=== PATIENT | female | born 1985 | race Caucasian/White ===

== ENCOUNTER 2016-08-20 10:22 | Emergency (ER) | payer OTHER ==
[2016-08-20] MEDS ORDERED: HYDROcodone/APAP 5-325MG 1 EACH TAB PO STA (10:50)
--- NOTE | 2016-08-20 11:46 | XR ---
EXAMINATION TYPE: XR ankle complete RT DATE OF EXAM: 08/20/2016 11:29 AM COMPARISON: NONE HISTORY: Pain TECHNIQUE: 3 view right ankle FINDINGS: Ankle mortise is intact. Joint spaces preserved. No acute fractures are evident. Soft tissu es are normal. IMPRESSION: 1. Normal three-view right ankle. 2. A follow-up exam can be performed 7-10 days from acute trauma for continued pain.
--- NOTE | 2016-08-20 11:47 | XR ---
EXAMINATION TYPE: XR foot complete RT DATE OF EXAM: 08/20/2016 11:30 AM COMPARISON: NONE HISTORY: Pain TECHNIQUE: 3 view right foot FINDINGS: No acute fractures are evident. Hammertoe of the second digit may be present. Soft tissues appear normal. Joint spaces are preserved for IMPRESSION: 1. No acute abnormality right foot. 2. Follow-up exam can be performed 7-10 days from acute trauma for continued pain.
--- NOTE | 2016-08-20 11:57 | ED ---
General Adult HPI - General Chief complaint: Extremity Injury, Lower Stated complaint: Foot injury Time Seen by Provider: 08/20/16 10:28 Source: patient, RN notes reviewed, old records reviewed Mode of arrival: wheelchair Limitations: physical limitation - History of Present Illness Initial comments: This is a 31-year-old female here for evaluation. Patient is right ankle pain. Patient has ankle pain secondary to slip and fall. Patient states symptoms have been about 2-3 days ago walking to her neighbor's house. She is very paints ever since but getting worse. No pain control currently. Patient is able to bear weight on right ankle - Related Data Home Medications Medication Instructions Recorded Confirmed No Known Home Medications [No 08/20/16 08/20/16 Known Home Medications] Allergies Allergy/AdvReac Type Severity Reaction Status Date / Time amoxicillin Allergy Unknown Verified 08/20/16 11:48 ibuprofen Allergy Anaphylaxis Verified 08/20/16 11:48 Penicillins Allergy Unknown Verified 08/20/16 11:48 Review of Systems ROS Statement: Those systems with pertinent positive or pertinent negative responses have been documented in the HPI. ROS Other: All systems not noted in ROS Statement are negative. Past Medical History Past Medical History: No Reported History Additional Past Medical History / Comment(s): migraines History of Any Multi-Drug Resistant Organisms: None Reported Past Surgical History: Hysterectomy Additional Past Surgical History / Comment(s): EYE SURGERY Past Psychological History: Bipolar Smoking Status: Former smoker Past Alcohol Use History: None Reported Past Drug Use History: None Reported General Exam Limitations: physical limitation General appearance: alert, in no apparent distress Head exam: Present: atraumatic, normocephalic, normal inspection Eye exam: Present: normal appearance, PERRL, EOMI. Absent: scleral icterus, conjunctival injection, periorbital swelling ENT exam: Present: normal exam, mucous membranes moist Neck exam: Present: normal inspection. Absent: tenderness, meningismus, lymphadenopathy Respiratory exam: Present: normal lung sounds bilaterally. Absent: respiratory distress, wheezes, rales, rhonchi, stridor Cardiovascular Exam: Present: regular rate, normal rhythm, normal heart sounds. Absent: systolic murmur, diastolic murmur, rubs, gallop, clicks GI/Abdominal exam: Present: soft, normal bowel sounds. Absent: distended, tenderness, guarding, rebound, rigid Extremities exam: Present: normal inspection, full ROM, normal capillary refill , other (Right ankle tenderness). Absent: tenderness, pedal edema, joint swelling, calf tenderness Back exam: Present: normal inspection Neurological exam: Present: alert, oriented X3, CN II-XII intact Psychiatric exam: Present: normal affect, normal mood Skin exam: Present: warm, dry, intact, normal color. Absent: rash Course Vital Signs 08/20/16 10:24 Temperature 97.8 F Pulse Rate 102 H Respiratory 20 Rate Blood Pressure 130/63 O2 Sat by Pulse 98 Oximetry - Reevaluation(s) Reevaluation #1: 08/20/16 11:56 Patient's pain is improved Medical Decision Making - Medical Decision Making 31 female at ER for evaluation of fall, right ankle sprain. Patient has right ankle contusion, patient given pain control discharged home - Radiology Data Radiology results: report reviewed (X-ray right ankle x-ray right foot is negative for fracture), image reviewed Disposition Clinical Impression: Ankle sprain, Contusion of right ankle, Fall Disposition: HOME SELF-CARE Condition: Good Instructions: Foot Sprain (ED), Ankle Sprain (ED) Referrals: Dieter Engle MD [Primary Care Provider] - 1-2 days
[2016-08-20 12:24] VITALS: BP 112/87; PULSE 87; RESP 18; TEMP 97.9
== END 2016-08-20 12:24 | disposition home or self-care (01) ==
LOC: EC 10:22
DX: S93.401A Sprain of unspecified ligament of right ankle, initial encounter (principal); Z88.6 Allergy status to analgesic agent; Z88.0 Allergy status to penicillin; Z87.891 Personal history of nicotine dependence; W01.0XXA Fall on same level from slipping, tripping and stumbling without subsequent striking against object, initial encounter
CPT/HCPCS: 99284

== ENCOUNTER 2017-10-08 12:26 | Emergency (ER) | payer OTHER ==
[2017-10-08] MEDS ORDERED: IPRATROPIUM-ALBUTEROL 3 ML NEB INHALATION STA (12:46)
[2017-10-08] MEDS ORDERED: ACETAMINOPHEN IV (For NPO) 1,000 MG in EMPTY BAG 1 BAG IVPB STA (12:46)
[2017-10-08] MEDS ORDERED: SODIUM CHLORIDE 0.9% 1,000 ML IV STA ×2 (12:46→14:00)
--- NOTE | 2017-10-08 13:11 | ED ---
General Adult HPI - General Chief complaint: Upper Respiratory Infection Stated complaint: Throat Pain, Congestion Time Seen by Provider: 10/08/17 12:39 Source: patient, RN notes reviewed Mode of arrival: ambulatory Limitations: no limitations - History of Present Illness Initial comments: Patient is a 32-year-old female significant past medical history for asthma, presented to the emergency room today with a chief complaint of increased congestion and difficulty breathing. Patient does admit that she has a sore throat. States it hurts when she swallows. Patient states that she recently moved back to the area. States she's not been using an inhaler or breathing she was at home. Patient does admit to feeling a little dizzy lightheaded today. She does admit that she's not been feeling well the past 2 days has not been eating and drinking much. Since been sleeping most the time. Patient denies any pain. Patient denies any recent fever, chills, chest pain, back pain , abdominal pain, nausea or vomiting, numbness or tingling, dysuria or hematuria , constipation or diarrhea, headaches or visual changes, or any other complaints. - Related Data Previous Rx's Medication Instructions Recorded Albuterol Inhaler [Ventolin Hfa 1 - 2 puff INHALATION Q4-6H PRN #1 10/08/17 Inhaler] inhaler predniSONE 50 mg PO DAILY #5 tab 10/08/17 Allergies Allergy/AdvReac Type Severity Reaction Status Date / Time amoxicillin Allergy Unknown Verified 10/08/17 12:58 ibuprofen Allergy Anaphylaxis Verified 10/08/17 12:58 Penicillins Allergy Unknown Verified 10/08/17 12:58 Review of Systems ROS Statement: Those systems with pertinent positive or pertinent negative responses have been documented in the HPI. ROS Other: All systems not noted in ROS Statement are negative. Past Medical History Past Medical History: No Reported History Additional Past Medical History / Comment(s): migraines History of Any Multi-Drug Resistant Organisms: None Reported Past Surgical History: Hysterectomy Additional Past Surgical History / Comment(s): EYE SURGERY Past Psychological History: Bipolar Smoking Status: Former smoker Past Alcohol Use History: None Reported Past Drug Use History: None Reported General Exam - General Exam Comments Initial Comments: General: The patient is awake and alert, in no distress, and does not appear acutely ill. Eye: Pupils are equal, round and reactive to light, extra-ocular movements are intact. No nystagmus. There is normal conjunctiva bilaterally. No signs of icterus. Ears, nose, mouth and throat: There are moist mucous membranes and no oral lesions. Neck: The neck is supple, there is no tenderness or JVD. Cardiovascular: There is a regular rate and rhythm. No murmur, rub or gallop is appreciated. Respiratory: Decreased lung sounds bilaterally. respirations are non-labored, breath sounds are equal. No wheezes, stridor, rales, or rhonchi. Musculoskeletal: Normal ROM, no tenderness. Strength 5/5. Sensation intact. Pulses equal bilaterally 2+. Neurological: A&O x 3. CN II-XII intact, There are no obvious motor or sensory deficits. Coordination appears grossly intact. Speech is normal. Skin: Skin is warm and dry and no rashes or lesions are noted. Psychiatric: Cooperative, appropriate mood & affect, normal judgment. Limitations: no limitations Course Vital Signs 10/08/17 10/08/17 10/08/17 12:36 12:41 13:06 Temperature 98.4 F Pulse Rate 117 H 103 H 108 H Respiratory 20 Rate Blood Pressure 130/87 O2 Sat by Pulse 92 L 98 Oximetry 10/08/17 13:13 Temperature Pulse Rate 104 H Respiratory Rate Blood Pressure O2 Sat by Pulse Oximetry EKG Findings - EKG Comments: EKG Findings:: EKG performed at 1303. Normal sinus rhythm at 86 bpm. VA interval 164. QRS 74. QT/QTC 358/428. No acute changes. Medical Decision Making - Medical Decision Making Patient reexamined at this time shows no signs of distress. Her initial pulse ox was 92%. It is felt that this is not accurate as also asked when she was back in the room was up to 98%. Patient's vitals at this time are stable. She has been some improvement after breathing treatment. Chest x-rays negative for any sign of pneumonia. Labs been reviewed. Negative d-dimer. Negative cardiac enzymes. Patient's EKG showing no acute abnormality. At this time patient does admit to a sore throat for her strep test was negative. His felt that she has a upper respiratory infection will be treated with steroids and breathing treatment her symptoms. Patient is advised follow-up the family doctor the next 2 days return here to the emergency room if any symptoms increase worsen. Patient states understanding and is in agreement. - Lab Data Result diagrams: 10/08/17 12:55 10/08/17 12:55 Lab Results 10/08/17 10/08/17 10/08/17 Range/Units 12:55 12:55 12:55 WBC 7.9 (3.8-10.6) k/uL RBC 5.17 (3.80-5.40) m/uL Hgb 16.0 (11.4-16.0) gm/dL Hct 49.6 H (34.0-46.0) % MCV 95.8 (80.0-100.0) fL MCH 30.8 (25.0-35.0) pg MCHC 32.2 (31.0-37.0) g/dL RDW 13.7 (11.5-15.5) % Plt Count 309 (150-450) k/uL Neutrophils % 79 % Lymphocytes % 13 % Monocytes % 6 % Eosinophils % 1 % Basophils % 0 % Neutrophils # 6.2 (1.3-7.7) k/uL Lymphocytes # 1.0 (1.0-4.8) k/uL Monocytes # 0.5 (0-1.0) k/uL Eosinophils # 0.1 (0-0.7) k/uL Basophils # 0.0 (0-0.2) k/uL D-Dimer (<0.60) mg/L FEU Sodium 141 (137-145) mmol/L Potassium 4.7 (3.5-5.1) mmol/L Chloride 102 (98-107) mmol/L Carbon Dioxide 27 (22-30) mmol/L Anion Gap 12 mmol/L BUN 16 (7-17) mg/dL Creatinine 0.62 (0.52-1.04) mg/dL Est GFR (CKD-EPI)AfAm >90 (>60 ml/min/1.73 sqM) Est GFR (CKD-EPI)NonAf >90 (>60 ml/min/1.73 sqM) Glucose 88 (74-99) mg/dL Calcium 9.5 (8.4-10.2) mg/dL Total Bilirubin 0.6 (0.2-1.3) mg/dL AST 51 H (14-36) U/L ALT 91 H (9-52) U/L Alkaline Phosphatase 121 (38-126) U/L Troponin I (0.000-0.034) ng/mL Total Protein 7.2 (6.3-8.2) g/dL Albumin 4.4 (3.5-5.0) g/dL Urine Color Urine Appearance (Clear) Urine pH (5.0-8.0) Ur Specific [place] (1.001-1.035) Urine Protein (Negative) Urine Glucose (UA) (Negative) Urine Ketones (Negative) Urine Blood (Negative) Urine Nitrite (Negative) Urine Bilirubin (Negative) Urine Urobilinogen (<2.0) mg/dL Ur Leukocyte Esterase (Negative) Urine WBC (0-5) /hpf Ur Squamous Epith Cells (0-4) /hpf Amorphous Sediment (None) /hpf Urine Bacteria (None) /hpf Urine Mucus (None) /hpf Heterophile Antibody Negative (Negative) Group A Strep Rapid (Negative) 10/08/17 10/08/17 10/08/17 Range/Units 12:55 12:55 12:55 WBC (3.8-10.6) k/uL RBC (3.80-5.40) m/uL Hgb (11.4-16.0) gm/dL Hct (34.0-46.0) % MCV (80.0-100.0) fL MCH (25.0-35.0) pg MCHC (31.0-37.0) g/dL RDW (11.5-15.5) % Plt Count (150-450) k/uL Neutrophils % % Lymphocytes % % Monocytes % % Eosinophils % % Basophils % % Neutrophils # (1.3-7.7) k/uL Lymphocytes # (1.0-4.8) k/uL Monocytes # (0-1.0) k/uL Eosinophils # (0-0.7) k/uL Basophils # (0-0.2) k/uL D-Dimer 0.22 (<0.60) mg/L FEU Sodium (137-145) mmol/L Potassium (3.5-5.1) mmol/L Chloride (98-107) mmol/L Carbon Dioxide (22-30) mmol/L Anion Gap mmol/L BUN (7-17) mg/dL Creatinine (0.52-1.04) mg/dL Est GFR (CKD-EPI)AfAm (>60 ml/min/1.73 sqM) Est GFR (CKD-EPI)NonAf (>60 ml/min/1.73 sqM) Glucose (74-99) mg/dL Calcium (8.4-10.2) mg/dL Total Bilirubin (0.2-1.3) mg/dL AST (14-36) U/L ALT (9-52) U/L Alkaline Phosphatase (38-126) U/L Troponin I <0.012 (0.000-0.034) ng/mL Total Protein (6.3-8.2) g/dL Albumin (3.5-5.0) g/dL Urine Color Urine Appearance (Clear) Urine pH (5.0-8.0) Ur Specific [place] (1.001-1.035) Urine Protein (Negative) Urine Glucose (UA) (Negative) Urine Ketones (Negative) Urine Blood (Negative) Urine Nitrite (Negative) Urine Bilirubin (Negative) Urine Urobilinogen (<2.0) mg/dL Ur Leukocyte Esterase (Negative) Urine WBC (0-5) /hpf Ur Squamous Epith Cells (0-4) /hpf Amorphous Sediment (None) /hpf Urine Bacteria (None) /hpf Urine Mucus (None) /hpf Heterophile Antibody (Negative) Group A Strep Rapid Negative (Negative) 10/08/17 Range/Units 14:16 WBC (3.8-10.6) k/uL RBC (3.80-5.40) m/uL Hgb (11.4-16.0) gm/dL Hct (34.0-46.0) % MCV (80.0-100.0) fL MCH (25.0-35.0) pg MCHC (31.0-37.0) g/dL RDW (11.5-15.5) % Plt Count (150-450) k/uL Neutrophils % % Lymphocytes % % Monocytes % % Eosinophils % % Basophils % % Neutrophils # (1.3-7.7) k/uL Lymphocytes # (1.0-4.8) k/uL Monocytes # (0-1.0) k/uL Eosinophils # (0-0.7) k/uL Basophils # (0-0.2) k/uL D-Dimer (<0.60) mg/L FEU Sodium (137-145) mmol/L Potassium (3.5-5.1) mmol/L Chloride (98-107) mmol/L Carbon Dioxide (22-30) mmol/L Anion Gap mmol/L BUN (7-17) mg/dL Creatinine (0.52-1.04) mg/dL Est GFR (CKD-EPI)AfAm (>60 ml/min/1.73 sqM) Est GFR (CKD-EPI)NonAf (>60 ml/min/1.73 sqM) Glucose (74-99) mg/dL Calcium (8.4-10.2) mg/dL Total Bilirubin (0.2-1.3) mg/dL AST (14-36) U/L ALT (9-52) U/L Alkaline Phosphatase (38-126) U/L Troponin I (0.000-0.034) ng/mL Total Protein (6.3-8.2) g/dL Albumin (3.5-5.0) g/dL Urine Color Light Yellow Urine Appearance Cloudy H (Clear) Urine pH 7.5 (5.0-8.0) Ur Specific [place] 1.007 (1.001-1.035) Urine Protein Negative (Negative) Urine Glucose (UA) Negative (Negative) Urine Ketones 1+ H (Negative) Urine Blood Negative (Negative) Urine Nitrite Negative (Negative) Urine Bilirubin Negative (Negative) Urine Urobilinogen <2.0 (<2.0) mg/dL Ur Leukocyte Esterase Negative (Negative) Urine WBC 1 (0-5) /hpf Ur Squamous Epith Cells 21 H (0-4) /hpf Amorphous Sediment Rare H (None) /hpf Urine Bacteria Occasional H (None) /hpf Urine Mucus Rare H (None) /hpf Heterophile Antibody (Negative) Group A Strep Rapid (Negative) Disposition Clinical Impression: Asthma exacerbation Disposition: HOME SELF-CARE Condition: Good Instructions: Upper Respiratory Infection (ED) Additional Instructions: Please use medication as discussed. Please follow-up with family doctor in the next 2 days of symptoms have not improved. Please return to emergency room if the symptoms increase or worsen or for any other concerns. Prescriptions: Albuterol Inhaler [Ventolin Hfa Inhaler] 1 - 2 puff INHALATION Q4-6H PRN #1 inhaler PRN Reason: Cough predniSONE 50 mg PO DAILY #5 tab Is patient prescribed a controlled substance at d/c from ED?: No Referrals: Dieter Engle MD [Primary Care Provider] - 1-2 days Time of Disposition: 14:54
[2017-10-08 13:19] LABS: Basophils % (A) 0 %; Eosinophils # (A) 0.1 k/uL (0-0.7); Eosinophils % (A) 1 %; HCT 49.6 % (34.0-46.0); Lymphocytes % (A) 13 %; MCH 30.8 pg (25.0-35.0); MCHC 32.2 g/dL (31.0-37.0); MCV 95.8 fL (80.0-100.0); Mean Platelet Volume 6.6; Monocytes # (A) 0.5 k/uL (0-1.0); Monocytes % (A) 6 %; Neutrophils # (A) 6.2 k/uL (1.3-7.7); Neutrophils % (A) 79 %; Platelet Count 309 k/uL (150-450); RBC 5.17 m/uL (3.80-5.40); RDW 13.7 % (11.5-15.5); WBC 7.9 k/uL (3.8-10.6)
[2017-10-08 13:33] LABS: ALT 91 U/L (9-52); AST 51 U/L (14-36); Albumin 4.4 g/dL (3.5-5.0); Alkaline Phosphatase 121 U/L (38-126); Anion Gap 12 mmol/L; Blood Urea Nitrogen 16 mg/dL (7-17); Calcium 9.5 mg/dL (8.4-10.2); Carbon Dioxide 27 mmol/L (22-30); Chloride 102 mmol/L (98-107); Glucose 88 mg/dL (74-99); Potassium 4.7 mmol/L (3.5-5.1); Sodium 141 mmol/L (137-145); Total Bilirubin 0.6 mg/dL (0.2-1.3); Total Protein 7.2 g/dL (6.3-8.2)
--- NOTE | 2017-10-08 13:33 | XR ---
EXAMINATION TYPE: XR chest 2V DATE OF EXAM: 10/08/2017 COMPARISON: NONE INDICATION: Cough short of breath TECHNIQUE: Frontal and lateral views of the chest are obtained. FINDINGS: The heart size is normal. The pulmonary vasculature is normal. The lungs are clear. IMPRESSION: 1. No acute pulmonary process.
[2017-10-08 14:26] LABS: Amorphous Sediment,Urine Rare /hpf; Appearance,Urine Cloudy (Clear); Bacteria,Urine Occasional /hpf; Bilirubin,Urine Negative (Negative); Blood,Urine Negative (Negative); Color,Urine Light Yellow; Glucose,Urine (UA) Negative (Negative); Ketones,Urine 1+ (Negative); Leukocyte Esterase,Urine Negative (Negative); Mucus,Urine Rare /hpf; Nitrite,Urine Negative (Negative); PH, Urine 7.5 (5.0-8.0); Protein,Urine Negative (Negative); Specific Gravity,Urine 1.007 (1.001-1.035); Squamous Epithelial Cell,Urine 21 /hpf (0-4); Urobilinogen,Urine <2.0 mg/dL (<2.0); WBC,Urine 1 /hpf (0-5)
[2017-10-08 14:52] VITALS: BP 114/66; PULSE 71; RESP 15; TEMP 98.2
[2017-10-08] MEDS ORDERED: methylPREDNISolone SOD SUCCI 125 MG/2 ML VIAL IV STA (14:54)
== END 2017-10-08 15:10 | disposition home or self-care (01) ==
LOC: EC 12:26
DX: J45.901 Unspecified asthma with (acute) exacerbation (principal); R07.0 Pain in throat; Z88.0 Allergy status to penicillin; Z88.6 Allergy status to analgesic agent; Z79.52 Long term (current) use of systemic steroids; Z87.891 Personal history of nicotine dependence
CPT/HCPCS: 99284; 96365; 96375; 96361; 36415; 94640; 93005; 85379; 80053; 84484; 85025; 86308; 81001; 87081; 87430; 71046; J2930; J0131

== ENCOUNTER 2017-10-15 12:16 | Emergency (ER) | payer OTHER ==
[2017-10-15 12:39] VITALS: TEMP 98.5
--- NOTE | 2017-10-15 13:48 | XR ---
EXAMINATION TYPE: XR ankle complete 3 views RT, XR foot complete 3 views RT DATE OF EXAM: 10/15/2017 COMPARISON: 08/20/2016 HISTORY: 32-year-old female with pain FINDINGS: Ankle: Ankle mortise is congruent with preservation of the distal tibiofibular overlap. Talar dome is intact . Small delineation to the Achilles tendon. Subtalar joint appears aligned. No acute fracture, sublux ation, or dislocation. Foot: There is focal spur projecting laterally from the proximal cuboid which was present on 08/20/2016. No acute fracture, subluxation, or dislocation seen. IMPRESSION: 1. Ankle: No acute osseous abnormality seen. 2. Foot: Prominent spicule of bone projecting laterally from the proximal cuboid was present on 2016. Sequela of remote trauma or some posttraumatic arthritic change are considered.
--- NOTE | 2017-10-15 13:51 | ED ---
General Adult HPI - General Chief complaint: Extremity Injury, Lower Stated complaint: rt foot/ankle pain Time Seen by Provider: 10/15/17 12:47 Source: patient, RN notes reviewed Mode of arrival: ambulatory Limitations: no limitations - History of Present Illness Initial comments: 32-year-old female presents to the emergency department for a chief complaint of right ankle pain times one day. Patient states she was carrying objects up the stairs when she felt the pain in her right ankle. Patient denies hitting her head or injuring herself in any other way. Patient denies pain in her head. Patient denies pain in her foot or knee. Patient has been taking Motrin or Tylenol. Patient has not tried icing or elevating the right ankle. Patient has no other complaints at this time including shortness of breath, chest pain, abdominal pain, nausea or vomiting, headache, or visual changes. - Related Data Home Medications Medication Instructions Recorded Confirmed No Known Home Medications [No 10/15/17 10/15/17 Known Home Medications] Allergies Allergy/AdvReac Type Severity Reaction Status Date / Time amoxicillin Allergy Unknown Verified 10/15/17 12:53 ibuprofen Allergy Anaphylaxis Verified 10/15/17 12:53 Penicillins Allergy Unknown Verified 10/15/17 12:53 Review of Systems ROS Statement: Those systems with pertinent positive or pertinent negative responses have been documented in the HPI. ROS Other: All systems not noted in ROS Statement are negative. Past Medical History Past Medical History: No Reported History Additional Past Medical History / Comment(s): migraines History of Any Multi-Drug Resistant Organisms: None Reported Past Surgical History: Hysterectomy Additional Past Surgical History / Comment(s): EYE SURGERY Past Psychological History: Bipolar Smoking Status: Former smoker Past Alcohol Use History: None Reported Past Drug Use History: None Reported General Exam Limitations: no limitations General appearance: alert, in no apparent distress Head exam: Present: atraumatic, normocephalic, normal inspection Eye exam: Present: normal appearance ENT exam: Present: normal exam, mucous membranes moist Neck exam: Present: normal inspection, full ROM. Absent: tenderness, meningismus, lymphadenopathy Respiratory exam: Present: normal lung sounds bilaterally. Absent: respiratory distress, wheezes, rales, rhonchi, stridor Cardiovascular Exam: Present: regular rate, normal rhythm, normal heart sounds. Absent: systolic murmur, diastolic murmur, rubs, gallop, clicks Extremities exam: Present: tenderness (Tenderness to the right medial malleolus. Tenderness to the dorsal right foot. No tenderness to the tib-fib or knee.), normal capillary refill (Refill less than 2 seconds and pedal pulse 2 + in the right lower extremity.), other (Patient ambulated to the bed on the right ankle. Sensation intact in the right lower extremity.). Absent: full ROM (Patient is about 10 plantar flexion and dorsiflexion of the right ankle due to pain.), pedal edema, joint swelling (No swelling noted in the medial malleolus or elsewhere in the ankle or foot, right.), calf tenderness (No tenderness in the calf. No redness or warmth noted in the right calf. Negative Homans sign.) Course Vital Signs 10/15/17 12:37 Temperature 98.5 F Pulse Rate 80 Respiratory 20 Rate Blood Pressure 130/73 O2 Sat by Pulse 96 Oximetry Medical Decision Making - Medical Decision Making 32-year-old female presents to the emergency determine for a chief complaint of right ankle injury times one day. Patient was carrying objects up the stairs when she felt the pain in her right ankle. On exam patient has tenderness of the medial malleolus. She also has mild tenderness of the dorsal foot. No tenderness ulcer in the ankle or foot. Neurovascular intact. Patient is able to ambulate on the right ankle. Patient was given ice in the emergency department and foot was elevated. No swelling or ecchymosis noted to the right ankle. XR Of the right ankle shows no acute osseous abnormality. X-ray of the right foot shows a prominent spicule of bone projecting laterally from the proximal cuboid that was present last year. No acute fracture subluxation or dislocation. Patient likely has a sprain or contusion of the right ankle. She will follow up with primary care in 1-2 days. Patient will take Motrin and Tylenol for pain. She was educated on rice method of therapy. She was wrapped with an John wrap on the right ankle. Patient was offered a prescription for crutches which she refused because she states she doesn't need them and can walk on it. She will return to the emergency Department if she has any worsening symptoms. Disposition Clinical Impression: Ankle injury Disposition: HOME SELF-CARE Condition: Good Instructions: Ankle Sprain (ED), RICE Therapy (ED) Additional Instructions: Please take Motrin and Tylenol for pain. Please rest ice and elevate the right upper extremity. Please use John wrap as needed. Follow-up with primary care at your scheduled appointment tomorrow. Is patient prescribed a controlled substance at d/c from ED?: No Referrals: Dieter Engle MD [Primary Care Provider] - 1-2 days Time of Disposition: 14:08
[2017-10-15 14:24] VITALS: BP 114/73; PULSE 71; RESP 18
== END 2017-10-15 14:22 | disposition home or self-care (01) ==
LOC: EC 12:16
DX: S99.911A Unspecified injury of right ankle, initial encounter (principal); M79.671 Pain in right foot; Z88.0 Allergy status to penicillin; Z88.6 Allergy status to analgesic agent; Z87.891 Personal history of nicotine dependence; X50.0XXA Overexertion from strenuous movement or load, initial encounter; Y93.89 Activity, other specified; Y92.008 Other place in unspecified non-institutional (private) residence as the place of occurrence of the external cause
CPT/HCPCS: 99283

== ENCOUNTER 2017-10-26 23:25 | Emergency (ER) | payer OTHER ==
[2017-10-26 23:34] VITALS: TEMP 98.6
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
[2017-10-26 23:51] LABS: Basophils % (A) 0 %; Eosinophils # (A) 0.2 k/uL (0-0.7); Eosinophils % (A) 2 %; HCT 40.3 % (34.0-46.0); HGB 13.4 gm/dL (11.4-16.0); Lymphocytes # (A) 2.4 k/uL (1.0-4.8); Lymphocytes % (A) 26 %; MCH 31.4 pg (25.0-35.0); MCHC 33.2 g/dL (31.0-37.0); MCV 94.6 fL (80.0-100.0); Mean Platelet Volume 6.4; Monocytes # (A) 0.5 k/uL (0-1.0); Monocytes % (A) 6 %; Neutrophils # (A) 5.8 k/uL (1.3-7.7); Neutrophils % (A) 64 %; Platelet Count 367 k/uL (150-450); RBC 4.26 m/uL (3.80-5.40); RDW 13.6 % (11.5-15.5); WBC 9.1 k/uL (3.8-10.6)
[2017-10-26 23:57] LABS: ALT 41 U/L (9-52); AST 24 U/L (14-36); Alcohol 115 mg/dL; Alkaline Phosphatase 100 U/L (38-126); Anion Gap 11 mmol/L; Blood Urea Nitrogen 20 mg/dL (7-17); Calcium 9.1 mg/dL (8.4-10.2); Carbon Dioxide 22 mmol/L (22-30); Chloride 109 mmol/L (98-107); Glucose 98 mg/dL (74-99); Potassium 3.6 mmol/L (3.5-5.1); Sodium 142 mmol/L (137-145); Total Bilirubin 0.3 mg/dL (0.2-1.3); Total Protein 6.4 g/dL (6.3-8.2)
[2017-10-27] MEDS ORDERED: ACETAMINOPHEN TAB 500 MG TAB PO STA (00:23)
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
--- NOTE | 2017-10-27 01:45 | XR ---
EXAMINATION TYPE: XR chest 2V DATE OF EXAM: 10/27/2017 COMPARISON: 10/08/2017 HISTORY: Cough TECHNIQUE: Frontal and lateral views of the chest are obtained. FINDINGS: Heart and mediastinum are normal. Lungs are clear. Diaphragm is normal. Bony thorax appear s normal. IMPRESSION: Normal chest. No change.
[2017-10-27 02:17] LABS: Appearance,Urine Cloudy (Clear); Bacteria,Urine Rare /hpf; Bilirubin,Urine Negative (Negative); Blood,Urine Negative (Negative); Color,Urine Yellow; Glucose,Urine (UA) Negative (Negative); Ketones,Urine Negative (Negative); Leukocyte Esterase,Urine Negative (Negative); Mucus,Urine Many /hpf; Nitrite,Urine Negative (Negative); PH, Urine 6.5 (5.0-8.0); Protein,Urine Trace (Negative); RBC,Urine 1 /hpf (0-5); Specific Gravity,Urine 1.021 (1.001-1.035); Squamous Epithelial Cell,Urine 21 /hpf (0-4); WBC,Urine 4 /hpf (0-5)
[2017-10-27 02:23] LABS: Amphetamine Screen,Urine Not Detected (NotDetected); Barbiturate Screen,Urine Not Detected (NotDetected); Benzodiazepines Screen,Urine Not Detected (NotDetected); Cocaine Screen,Urine Detected (NotDetected); Methadone Screen, Urine Not Detected (NotDetected); Opiate Screen,Urine Not Detected (NotDetected); Oxycodone Screen, Urine Not Detected (NotDetected); Phencyclidine Screen,Urine Not Detected (NotDetected); Tricyclic Antidepressant,Urine Not Detected (NotDetected); Urn Cannabinoid Scrn Detected (NotDetected)
[2017-10-27 03:38] VITALS: BP 102/50; PULSE 90; RESP 16
== END 2017-10-27 03:41 | disposition home or self-care (01) ==
LOC: EC 23:25
DX: F10.129 Alcohol abuse with intoxication, unspecified (principal); M54.5 Low back pain; M54.2 Cervicalgia; R51 Headache; R06.00 Dyspnea, unspecified; R55 Syncope and collapse; Z87.891 Personal history of nicotine dependence; Z88.0 Allergy status to penicillin; Z88.6 Allergy status to analgesic agent; Y04.0XXA Assault by unarmed brawl or fight, initial encounter
CPT/HCPCS: 36415; 70450; 71046; 72100; 72125; 72170; 80053; 80306; 80320; 81001; 85025; 99285

== ENCOUNTER 2017-11-10 00:33 | Emergency (ER) | payer OTHER ==
[2017-11-10] MEDS ORDERED: SODIUM CHLORIDE 0.9% 1,000 ML IV ONE (01:08)
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
[2017-11-10 01:20] LABS: Basophils % (A) 0 %; Eosinophils # (A) 0.1 k/uL (0-0.7); Eosinophils % (A) 1 %; HCT 42.2 % (34.0-46.0); HGB 14.1 gm/dL (11.4-16.0); Lymphocytes # (A) 2.5 k/uL (1.0-4.8); Lymphocytes % (A) 26 %; MCH 31.7 pg (25.0-35.0); MCHC 33.5 g/dL (31.0-37.0); MCV 94.5 fL (80.0-100.0); Mean Platelet Volume 6.5; Monocytes # (A) 0.5 k/uL (0-1.0); Monocytes % (A) 5 %; Neutrophils # (A) 6.5 k/uL (1.3-7.7); Neutrophils % (A) 66 %; Platelet Count 289 k/uL (150-450); RBC 4.46 m/uL (3.80-5.40); RDW 13.3 % (11.5-15.5); WBC 9.9 k/uL (3.8-10.6)
[2017-11-10 01:34] LABS: Alcohol 262 mg/dL; Anion Gap 10 mmol/L; Blood Urea Nitrogen 15 mg/dL (7-17); Calcium 9.4 mg/dL (8.4-10.2); Carbon Dioxide 21 mmol/L (22-30); Chloride 117 mmol/L (98-107); Glucose 97 mg/dL (74-99); Potassium 3.7 mmol/L (3.5-5.1); Sodium 148 mmol/L (137-145)
[2017-11-10 01:37] LABS: Amphetamine Screen,Urine Not Detected (NotDetected); Barbiturate Screen,Urine Not Detected (NotDetected); Benzodiazepines Screen,Urine Not Detected (NotDetected); Cocaine Screen,Urine Detected (NotDetected); Methadone Screen, Urine Not Detected (NotDetected); Opiate Screen,Urine Not Detected (NotDetected); Oxycodone Screen, Urine Not Detected (NotDetected); Phencyclidine Screen,Urine Not Detected (NotDetected); Tricyclic Antidepressant,Urine Not Detected (NotDetected); Urn Cannabinoid Scrn Not Detected (NotDetected)
--- NOTE | 2017-11-10 01:54 | CT ---
EXAMINATION TYPE: CT brain wo con DATE OF EXAM: 11/10/2017 COMPARISON: 10/26/2017 HISTORY: AMS, ETOH CT DLP: 1858.40 mGycm. Automated Exposure Control for Dose Reduction was Utilized. TECHNIQUE: CT scan of the head is performed without contrast. FINDINGS: The ventricles and sulci appear normal. There is no mass effect nor midline shift. There is no sign of intracranial hemorrhage. The calvarium is intact. IMPRESSION: Negative CT scan of the brain. No change.
[2017-11-10 02:51] VITALS: BP 105/62; PULSE 105; RESP 18; TEMP 98.3
== END 2017-11-10 03:03 | disposition home or self-care (01) ==
LOC: EC 00:33
DX: F10.120 Alcohol abuse with intoxication, uncomplicated (principal); F14.10 Cocaine abuse, uncomplicated; R56.9 Unspecified convulsions; Z87.891 Personal history of nicotine dependence; Z88.0 Allergy status to penicillin; Z88.6 Allergy status to analgesic agent; Y90.8 Blood alcohol level of 240 mg/100 ml or more
CPT/HCPCS: 36415; 70450; 80048; 80306; 80320; 85025; 96360; 99284

== ENCOUNTER 2019-08-09 23:11 | Emergency (ER) | payer OTHER ==
[2019-08-09 23:17] VITALS: BP 110/76; PULSE 83; RESP 20; TEMP 98.5
[2019-08-09] MEDS ORDERED: ACET/COD 300 MG/30 MG STARTER PACK 6 TAB BTL PO STA (23:38)
[2019-08-09] MEDS ORDERED: Acetaminophen-Codeine 300-30mg TAB PO STA (23:52)
--- NOTE | 2019-08-10 | ED ---
General Adult HPI - General Chief complaint: Skin/Abscess/Foreign Body Stated complaint: Right breast lump discharge Time Seen by Provider: 08/09/19 23:27 Source: patient, family, RN notes reviewed, old records reviewed Mode of arrival: ambulatory Limitations: no limitations - History of Present Illness Initial comments: 34-year-old male patient with the chief complaint right breast. Patient reports that the last 2 weeks is having pain in her right breast. Patient was seen by her primary care provider who recommended an ultrasound. Patient received 2 days because of pain. States it is uncomfortable to put on a bra and difficult to sleep. She does state that she was having some discharge from her right nipple as well. Denies any other complaints. Systemic: Pt denies fatigue, fever/chills, rash. Pt denies weakness, night sweats, weight loss. Neuro: Pt denies headache, visual disturbances, syncope or pre-syncope. HEENT: Pt denies ocular discharge or irritation, otalgia, rhinorrhea, pharyngitis or notable lymphadenopathy. Cardiopulmonary: Pt denies chest pain, SOB, heart palpitations, dyspnea on exertion. Abdominal/GI: Pt denies abdominal pain, n/v/d. : Pt denies dysuria, burning w/ urination, frequency/urgency. Denies new onset urinary or bowel incontinence. MSK: Pt denies myalgia, loss of strength or function in extremities. Neuro: Pt denies new onset weakness, paresthesias. - Related Data Home Medications Medication Instructions Recorded Confirmed No Known Home Medications 10/15/17 10/15/17 Allergies Allergy/AdvReac Type Severity Reaction Status Date / Time amoxicillin Allergy Unknown Verified 08/09/19 23:17 ibuprofen Allergy Anaphylaxis Verified 08/09/19 23:17 Penicillins Allergy Unknown Verified 08/09/19 23:17 Review of Systems ROS Statement: Those systems with pertinent positive or pertinent negative responses have been documented in the HPI. ROS Other: All systems not noted in ROS Statement are negative. Past Medical History Past Medical History: No Reported History Additional Past Medical History / Comment(s): migraines, asthma, possible breast CA, seizures History of Any Multi-Drug Resistant Organisms: None Reported Past Surgical History: Hysterectomy Additional Past Surgical History / Comment(s): EYE SURGERY Past Psychological History: Bipolar Smoking Status: Former smoker Past Alcohol Use History: Rare Past Drug Use History: Marijuana General Exam - General Exam Comments Initial Comments: Constitutional: NAD, AOX3, Pt has pleasant affect. HEENT: NC/AT, trachea midline, neck supple, no lymphadenopathy. Posterior pharynx non erythematous, without exudates. External ears appear normal, without discharge. Mucous membranes moist. Eyes PERRLA, EOM intact. There is no scleral icterus. No pallor noted. Cardiopulmonary: RRR, no murmurs, rubs or gallops, no JVD noted. Lungs CTAB in anterior and posterior carbajal. No peripheral edema. Abdominal exam: Abdomen soft and non-distended. Abdomen non-tender to palpation in all 4 quadrants. Bowel sounds active in LLQ. No hepatosplenomegaly. No ecchymosis Neuro: CN II-XII grossly intact. No nuchal rigidity. No raccon eyes, no martinez sign, no hemotympanum. No cervical spinal tenderness. MSK: No posterior calf tenderness bilaterally, homans sign negative bilaterally. Posterior tibialis and radial pulse +2 bilaterally. Sensation intact in upper and lower extremities. Full active ROM in upper and lower extremities, 5/5 stregnth. Breast: Clinical breast exam chaperoned by NINA Etienne. Patient did have some mild tenderness to her axillary tail and a possible small mass noted at approximately 12:00 above the nipple. No discharge is noted. No external skin changes are noted. Limitations: no limitations Course Vital Signs 08/09/19 23:13 Temperature 98.5 F Pulse Rate 83 Respiratory 20 Rate Blood Pressure 110/76 O2 Sat by Pulse 97 Oximetry Medical Decision Making - Medical Decision Making 34-year-old male patient with the chief complaint right breast. Patient reports that the last 2 weeks is having pain in her right breast. Patient was seen by her primary care provider who recommended an ultrasound. Patient received 2 days because of pain. States it is uncomfortable to put on a bra and difficult to sleep. She does state that she was having some discharge from her right nipple as well. Denies any other complaints. Patient will signs are stable, afebrile. Physical exam displayed: Clinical breast exam chaperoned by NINA Etienne. Patient did have some mild tenderness to her axillary tail and a possible small mass noted at approximately 12:00 above the nipple. No discharge is noted. No external skin changes are noted. Patient discharged with Tylenol 3 starter pack. Pt will follow-up with primary care provider for outpatient imaging. Will return to ER if condition worsens. Case discussed with Dr. Ragsdale. Disposition Clinical Impression: Breast pain Disposition: HOME SELF-CARE Condition: Stable Instructions (If sedation given, give patient instructions): Nipple Discharge (ED) Additional Instructions: Follow-up with primary care provider. Use pain medication as needed. Return to ED if condition worsens in anyway. Is patient prescribed a controlled substance at d/c from ED?: No Referrals: Dieter Engle MD [Primary Care Provider] - 1-2 days
== END 2019-08-10 00:07 | disposition home or self-care (01) ==
LOC: EC 23:11
DX: N64.4 Mastodynia (principal); N64.52 Nipple discharge; Z87.891 Personal history of nicotine dependence; Z88.0 Allergy status to penicillin; Z88.6 Allergy status to analgesic agent
CPT/HCPCS: 99283

== ENCOUNTER → 2019-08-26 | Outpatient (CLI) | payer OTHER ==
--- NOTE | 2019-08-27 10:47 | USB ---
Reason for exam: clinical finding. Indicated problem(s): lump or thickening in the right breast. Physical Findings: Nurse Summary: Patient complains of right breast lump x 1 month, pain intermittent x 3 months, bloody nipple discharge x 3 weeks, nodular, tender right breast, multicystic, 1cm lumps 11 o'clock at 5 o'clock (nurse mj). US Breast RT Right complete breast ultrasound includes all four quadrants, the retroareolar region and axilla. Finding demonstrates a 2.8 x 1.4 x 2.0cm cystic cluster, avascular, thin septations at 12 o'clock, a 1.3 x 1.2 x 1.9cm cystic cluster at 5 o'clock, precautionary 6 month follow up recommended and a 0.5 x 0.3 x 0.5cm cystic cluster at 9 o'clock, precautionary 6 month follow up recommended. None of the masses are retroareolar. Surgical consultation recommended for patient's bloody nipple discharge. Mammogram deferred until after surgical consultation given ELDER miranda. These results were verbally communicated with the patient and result sheet given to the patient on 08/26/19. ASSESSMENT: Probably benign, BI-RAD 3 (5 o'clock and 9 o'clock) RECOMMENDATION: Surgical consultation of the right breast. Called Dr. Engle's office with mammographic findings and has scheduled an appointment for the patient for 09/11/19 at 8:[address] Hutchison. PRELIMINARY REPORT CALLED AND FAXED TO DR. HUTCHIOSN ON 08/27/19. Ultrasound of the right breast in 6 months.
== END | disposition home or self-care (01) ==
LOC: RADUSWWP 08:18
PROVIDERS: ATTEND Family Medicine
DX: N64.52 Nipple discharge (principal)

== ENCOUNTER → 2019-09-16 | Outpatient (CLI) | payer OTHER ==
--- NOTE | 2019-09-16 09:34 | MM ---
Reason for exam: clinical finding. History: Family history of breast cancer in maternal aunt at age 40 and breast cancer in paternal aunt at age 40. Indicated problem(s): bloody discharge in the right breast. Physical Findings: Nurse Summary: 2 x 2cm nodule in the right breast at 12 o'clock and a 1 x 1.5cm nodule in the right breast at 5 o'clock (nurse ts). [facility] Mammo w CAD B[place] Bilateral CC and MLO view(s) were taken. Finding: There is a 5 x 3 cm circumscribed oval mass in the upper quadrant, middle position of the right breast. Septated large cyst 12 o'clock on ultrasound 08/26/19. Small nodularity in the left breast. Oval lesion middle depth inner breast 1.2cm, likely debris filled cyst on ultrasound. These results were verbally communicated with the patient and result sheet given to the patient on 09/16/19. ASSESSMENT: Incomplete: need additional imaging evaluation, BI-RAD 0 RECOMMENDATION: Ultrasound of the left breast.
--- NOTE | 2019-09-16 09:37 | USB ---
Reason for exam: additional evaluation requested from abnormal screening. History: Family history of breast cancer in maternal aunt at age 40 and breast cancer in paternal aunt at age 40. US Breast LT Technologist: Jaimie Flores Left complete breast ultrasound includes all four quadrants, the retroareolar region and axilla. Finding demonstrates a 1.1 x 1.4 x 0.6cm cystic cluster at 12 o'clock, a 1.1 x 1.0 x 0.7cm cystic lesion with debris at 1 o'clock, a 0.8 x 0.8 x 0.4cm cystic cluster at 1 o'clock and a 1.7 x 1.2 x 0.7cm lesion at 4 o'clock. These results were verbally communicated with the patient and result sheet given to the patient on 09/16/19. ASSESSMENT: Probably benign, BI-RAD 3 RECOMMENDATION: Ultrasound of the left breast in 6 months.
== END | disposition home or self-care (01) ==
LOC: RADMAMWWP 07:32
PROVIDERS: ATTEND Surgery
DX: N64.52 Nipple discharge (principal)
CPT/HCPCS: 77066

== ENCOUNTER → 2019-09-19 | Outpatient (CLI) | payer OTHER ==
--- NOTE | 2019-09-19 09:23 | BMR ---
EXAMINATION TYPE: MR breast BILAT wo/w con DATE OF EXAM: 09/19/2019 COMPARISON: Bilateral diagnostic mammogram dated 09/16/2019 and left breast ultrasound dated 09/16/2019 . Right breast ultrasound dated 08/26/2019. HISTORY: N64.52 bloody nipple discharge on the right, Pain and soreness in Right Breast. Lumps in Bot h Breasts TECHNIQUE: A series of fat and water weighted images in the long and short axis views of both breasts are obtained in conjunction with dynamic contrast MRI with subtraction technique. The patient was i njected with 5 mL intravenous Gadavist gadolinium contrast. Three-dimensional and additional postpr ocessing imaging is created on independent workstation and reviewed during official interpretation of this study. FINDINGS: The breasts are composed of heterogenous fibroglandular tissue with moderate background parenchymal e nhancement, limiting sensitivity of examination. T2 axial fat sat imaging demonstrates numerous bilateral T2 markedly hyperintense cysts, the largest on the right at 12:00 within internal septations corresponding to the sonographic cyst that was palpa ble on the ultrasound of 08/26/2019. This measures up to 2.0 cm and previously measured up to 2.8 cm. Numerous foci of background parenchymal enhancement are seen with a slightly larger more defined well -circumscribed oval mass at anterior depth at approximately the 4:00 position in the right breast mayte suring 6 mm. This demonstrates persistent kinetics and given all findings as of low suspicion. No josafat picious mass or nodule mass enhancement is seen. No abnormal axillary, internal mammary, or intramamm vaishnavi adenopathy bilaterally. IMPRESSION: BI-RADS 2-benign findings. Exam is limited by heterogenous tissue and moderate background parenchymal enhancement with numerous bilateral cysts suggesting fibrocystic change. No suspicious finding on MR I to suggest malignancy. A low suspicion 6 mm oval mass at the 4:00 position in the right breast may represent background enhancement or a small fibroadenoma with persistent kinetics. The patient could undergo six-month follow-up MRI in combination with the suggested bilateral breast ultrasound. Surgic al management of the right breast nipple discharge.
== END | disposition home or self-care (01) ==
LOC: RADMRIMAIN 07:23
PROVIDERS: ATTEND Surgery
DX: N60.02 Solitary cyst of left breast (principal); N60.01 Solitary cyst of right breast; N63.14 Unspecified lump in the right breast, lower inner quadrant; N64.52 Nipple discharge
CPT/HCPCS: C8937; C8908; A9585; 77049

== ENCOUNTER 2019-10-13 05:54 | Day surgery (SDC) | payer OTHER ==
[2019-10-07 14:22] VITALS: BMI 20.5
[~2019-10-13 05:54] MED LIST: ACETAMINOPHEN TAB 500 MG TAB PO ONE; HEPARIN SODIUM,PORCINE 5,000 UNIT/ML 1 ML VIAL SQ ONE
[2019-10-13] MEDS ORDERED: LACTATED RINGERS 1,000 ML IV SCH (05:56)
[2019-10-13] MEDS ORDERED: DEXAMETHASONE SOD PHOSPHATE 10 MG/ML 1 ML VIAL IV ONE (05:56)
[2019-10-13] MEDS ORDERED: LIDOCAINE 1% (10MG/ML) FOR IV START INTRADERMA PRN (05:56)
[2019-10-13] MEDS ORDERED: ONDANSETRON 4 MG/2 ML VIAL IVP ONE ×2 (05:56→08:50)
[2019-10-13 06:13] VITALS: TEMP 98.8
[2019-10-13] MEDS: CLINDAMYCIN 900 MG in DEXTROSE 5% IN WATER 50 ML IVPB ONE ×4 (07:37→08:03)
[2019-10-13] MEDS ORDERED: MIDAZOLAM 2 MG/2 ML VIAL ONE (07:41)
[2019-10-13] MEDS ORDERED: PROPOFOL 10 MG/ML 20 ML VIAL IV ONE (07:41)
[2019-10-13] MEDS ORDERED: fentaNYL (PF) 50 MCG/ML 2 ML AMP ONE (07:41)
[2019-10-13] MEDS ORDERED: LIDOCAINE 1% INJ 10MG/ML (20 ML MDV) ONE (07:41)
[2019-10-13] MEDS ORDERED: BUPIVACAINE (PF) 0.25% 30 ML VIAL SQ ONE ×2 (08:07→08:36)
[2019-10-13] MEDS ORDERED: NALOXONE 0.4 MG/ML 1 ML VIAL IV PRN (08:50)
[2019-10-13] MEDS ORDERED: HYDROcodone/APAP 5-325MG 1 EACH TAB PO PRN (08:50)
[2019-10-13] MEDS: HYDROmorphone 0.5 MG/0.5 ML SYRINGE IVP PRN ×2 (08:55→09:30)
--- NOTE | 2019-10-13 09:02 | P.OP ---
Date of Procedure: 10/13/19 Procedure(s) Performed: PREOPERATIVE DIAGNOSIS: Right breast bloody nipple discharge POSTOPERATIVE DIAGNOSIS: Same PROCEDURE: Subareolar excision, excision breast cyst 11:00 SURGEON: Ernestina EBL: 10 Olga ANESTHESIA: Gen. COMPLICATIONS: None OPERATIVE PROCEDURE: Place never table in the supine position. The patient was placed under general anesthesia. The breast was prepped and draped sterilely. A curvilinear incision was made between 7 and 12:00. Dissection beneath the nipple took place using electrocautery. The subareolar tissue was then excised and sent to pathology for close examination. The patient had a palpable breast cyst at 11:00. I dissected through the breast tissue until the cyst was i dentified and excised. This had normal-appearing [place] colored cyst fluid. No other abnormalities were identified. The subcutaneous tissues were irrigated with saline. No bleeding was seen. The subcutaneous tissues were then closed using 3-0 Vicryl sutures and the skin was closed using interrupted 4-0 Monocryl sutures. Skin glue and sterile dressings were applied. DISPOSITION: Stable to recovery room
[2019-10-13] MEDS ORDERED: diphenhydrAMINE 50 MG/ML 1 ML VIAL IVP ONE (09:20)
[2019-10-13] MEDS ORDERED: ALBUTEROL NEBULIZED 2.5 MG/3 ML INHALATION ONE (09:34)
[2019-10-13] MEDS ORDERED: LACTATED RINGERS 1,000 ML IV ONE (09:47)
[2019-10-13] MEDS ORDERED: oxyCODONE-APAP 5-325MG 1 EACH TAB PO ONE (10:14)
[2019-10-13 10:17] VITALS: BP 124/89; PULSE 99; RESP 18
== END 2019-10-13 10:45 | disposition home or self-care (01) ==
LOC: OR 05:54
PROVIDERS: ATTEND Surgery
DX: N60.11 Diffuse cystic mastopathy of right breast (principal); N62 Hypertrophy of breast; N64.52 Nipple discharge; J45.909 Unspecified asthma, uncomplicated; F31.9 Bipolar disorder, unspecified; G43.909 Migraine, unspecified, not intractable, without status migrainosus; G40.909 Epilepsy, unspecified, not intractable, without status epilepticus; Z90.710 Acquired absence of both cervix and uterus; Z90.722 Acquired absence of ovaries, bilateral; Z90.79 Acquired absence of other genital organ(s); Z88.6 Allergy status to analgesic agent; Z88.0 Allergy status to penicillin; Z79.899 Other long term (current) drug therapy; Z98.890 Other specified postprocedural states; Z87.891 Personal history of nicotine dependence; Z80.3 Family history of malignant neoplasm of breast
CPT/HCPCS: 88304; 88305; 19120; J2250; J1200; J1644; J1100; J2405; J2001; J3010; J2704; J1170; 88307

== ENCOUNTER → 2020-03-18 | Outpatient (CLI) | payer OTHER | END | disposition home or self-care (01) | LOC: LABWHC1 08:49 | PROVIDERS: ATTEND Family Medicine | DX: Z20.828 Contact with and (suspected) exposure to other viral communicable diseases (principal) | CPT/HCPCS: U0003; C9803 ==

== ENCOUNTER 2020-03-21 00:50 | Emergency (ER) | payer OTHER ==
[2020-03-21 00:59] VITALS: BP 110/72; PULSE 87; RESP 20; TEMP 98
[2020-03-21] MEDS ORDERED: SODIUM CHLORIDE 0.9% 500 ML 500 ML IV STA (01:45)
[2020-03-21] MEDS ORDERED: ONDANSETRON 4 MG/2 ML VIAL IVP STA (01:45)
[2020-03-21] MEDS ORDERED: SODIUM CHLORIDE 0.9% 1,000 ML IV STA ×2 (01:45)
--- NOTE | 2020-03-21 01:45 | ED ---
Seizure HPI - General Source: patient, family, RN notes reviewed, old records reviewed Mode of arrival: ambulatory Limitations: no limitations - History of Present Illness MD Complaint: seizure -: unknown -: second(s) Witnessed: yes - by bystander Trauma: No Seizure History: known seizure disorder Place: home Possible Precipitating Event: none Associated Symptoms: denies other symptoms Treatments Prior to Arrival: none <Rj Ragsdale - Last Filed: 03/21/20 02:22> <Curtis Lantigua - Last Filed: 03/21/20 10:16> - General Chief Complaint: Abdominal Pain Stated Complaint: Abd Pain Time Seen by Provider: 03/21/20 01:16 - History of Present Illness Initial Comments: This is a 35-year-old female DF for evaluation patient Dese for evaluation rega rds to multiple complaints. Patient is told some people she suicidal she is telling me here that she may have had 3 seizures tonight. Patient admits to drug use tonight very stressed out at bedside with persistent nausea vomiting (Rj Ragsdale) - Related Data Home Medications Medication Instructions Recorded Confirmed Albuterol Inhaler [Ventolin Hfa 1 puff INHALATION RT-TID PRN 10/07/19 10/13/19 Inhaler] Albuterol Nebulized [Ventolin 1 applic INHALATION Q4H PRN 10/07/19 10/13/19 Nebulized] Beclomethasone Dip 80 Mcg/Puff 1 puff INHALATION BID 10/07/19 10/13/19 [Qvar 80 mcg] Citalopram Hydrobromide 40 mg PO QAM 10/07/19 10/13/19 [Citalopram HBr] busPIRone HCl [Buspar] 10 mg PO QAM 10/07/19 10/13/19 lamoTRIgine 100 mg PO BID 10/07/19 10/13/19 Previous Rx's Medication Instructions Recorded oxyCODONE HCL [OxyIR] 5 mg PO Q6H PRN 3 Days #6 tab 10/13/19 Allergies Allergy/AdvReac Type Severity Reaction Status Date / Time amoxicillin Allergy Unknown Verified 03/21/20 00:59 ibuprofen Allergy Anaphylaxis Verified 03/21/20 00:59 Penicillins Allergy Unknown Verified 03/21/20 00:59 Review of Systems ROS Other: All systems not noted in ROS Statement are negative. <Rj Ragsdale - Last Filed: 03/21/20 02:22> ROS Other: All systems not noted in ROS Statement are negative. <Curtis Lantigua - Last Filed: 03/21/20 10:16> ROS Statement: Those systems with pertinent positive or pertinent negative responses have been documented in the HPI. Past Medical History Past Medical History: Asthma, Seizure Disorder Additional Past Medical History / Comment(s): bloody discharge rt breast, migraines, asthma, last seizure 08/2019 History of Any Multi-Drug Resistant Organisms: None Reported Past Surgical History: Hysterectomy Additional Past Surgical History / Comment(s): EYE SURGERY as child Past Anesthesia/Blood Transfusion Reactions: Postoperative Nausea & Vomiting (PONV) Past Psychological History: Bipolar Smoking Status: Current some day smoker Past Alcohol Use History: Rare Past Drug Use History: Cocaine, Marijuana, Methamphetamine <Rj Ragsdale - Last Filed: 03/21/20 02:22> General Exam Limitations: no limitations General appearance: alert, in no apparent distress, anxious Head exam: Present: atraumatic, normocephalic, normal inspection Eye exam: Present: normal appearance, PERRL, EOMI. Absent: scleral icterus, conjunctival injection, periorbital swelling ENT exam: Present: normal exam, mucous membranes moist Neck exam: Present: normal inspection. Absent: tenderness, meningismus, lymphadenopathy Respiratory exam: Present: normal lung sounds bilaterally. Absent: respiratory distress, wheezes, rales, rhonchi, stridor Cardiovascular Exam: Present: regular rate, normal rhythm, normal heart sounds. Absent: systolic murmur, diastolic murmur, rubs, gallop, clicks GI/Abdominal exam: Present: soft, normal bowel sounds. Absent: distended, tenderness, guarding, rebound, rigid Extremities exam: Present: normal inspection, full ROM, normal capillary refill. Absent: tenderness, pedal edema, joint swelling, calf tenderness Back exam: Present: normal inspection Neurological exam: Present: alert, oriented X3, CN II-XII intact Psychiatric exam: Present: normal affect, normal mood Skin exam: Present: warm, dry, intact, normal color. Absent: rash <Rj Ragsdale - Last Filed: 03/21/20 02:22> Course <Rj Ragsdale - Last Filed: 03/21/20 02:22> Vital Signs 03/21/20 00:54 Temperature 98 F Pulse Rate 87 Respiratory 20 Rate Blood Pressure 110/72 O2 Sat by Pulse 100 Oximetry - Reevaluation(s) Reevaluation #1: 03/21/20 02:22 Medical records reviewed (Rj Ragsdale) Medical Decision Making - Lab Data Result diagrams: 03/21/20 01:51 <Rj Ragsdale - Last Filed: 03/21/20 02:22> - Lab Data Result diagrams: 03/21/20 01:51 03/21/20 01:51 <Curtis Lantigua - Last Filed: 03/21/20 10:16> - Medical Decision Making Patient was seen by mental health services with plan for discharge. Patient reevaluated by myself, Dr. Lantigua. Patient denies suicidal ideation and does contract for safety. Friend is present who is also comfortable with discharge. Patient is comfortable with discharge. (Curtis Lantigua) - Lab Data Lab Results 03/21/20 03/21/20 03/21/20 Range/Units 01:51 01:51 01:51 WBC 7.8 (3.8-10.6) k/uL RBC 5.02 (3.80-5.40) m/uL Hgb 15.8 (11.4-16.0) gm/dL Hct 48.1 H (34.0-46.0) % MCV 95.7 (80.0-100.0) fL MCH 31.4 (25.0-35.0) pg MCHC 32.8 (31.0-37.0) g/dL RDW 12.4 (11.5-15.5) % Plt Count 348 (150-450) k/uL MPV 6.3 Neutrophils % 68 % Lymphocytes % 23 % Monocytes % 4 % Eosinophils % 2 % Basophils % 1 % Neutrophils # 5.3 (1.3-7.7) k/uL Lymphocytes # 1.8 (1.0-4.8) k/uL Monocytes # 0.3 (0-1.0) k/uL Eosinophils # 0.2 (0-0.7) k/uL Basophils # 0.1 (0-0.2) k/uL Sodium (137-145) mmol/L Potassium (3.5-5.1) mmol/L Chloride (98-107) mmol/L Carbon Dioxide (22-30) mmol/L Anion Gap mmol/L BUN (7-17) mg/dL Creatinine (0.52-1.04) mg/dL Est GFR (CKD-EPI)AfAm (>60 ml/min/1.73 sqM) Est GFR (CKD-EPI)NonAf (>60 ml/min/1.73 sqM) Glucose (74-99) mg/dL Calcium (8.4-10.2) mg/dL Phosphorus (2.5-4.5) mg/dL Magnesium (1.6-2.3) mg/dL Total Bilirubin (0.2-1.3) mg/dL AST (14-36) U/L ALT (4-34) U/L Alkaline Phosphatase (38-126) U/L Creatine Kinase (30-135) U/L Total Protein (6.3-8.2) g/dL Albumin (3.5-5.0) g/dL Lipase (23-300) U/L Urine HCG, Qual Not Detected (Not Detectd) Salicylates mg/dL Urine Opiates Screen Not Detected (NotDetected) Ur Oxycodone Screen Not Detected (NotDetected) Urine Methadone Screen Not Detected (NotDetected) Ur Propoxyphene Screen Not Detected (NotDetected) Acetaminophen ug/mL Ur Barbiturates Screen Not Detected (NotDetected) U Tricyclic Antidepress Not Detected (NotDetected) Ur Phencyclidine Scrn Not Detected (NotDetected) Ur Amphetamines Screen Not Detected (NotDetected) U Methamphetamines Scrn Not Detected (NotDetected) U Benzodiazepines Scrn Detected H (NotDetected) Urine Cocaine Screen Detected H (NotDetected) U Marijuana (THC) Screen Not Detected (NotDetected) Serum Alcohol mg/dL 03/21/20 Range/Units 01:51 WBC (3.8-10.6) k/uL RBC (3.80-5.40) m/uL Hgb (11.4-16.0) gm/dL Hct (34.0-46.0) % MCV (80.0-100.0) fL MCH (25.0-35.0) pg MCHC (31.0-37.0) g/dL RDW (11.5-15.5) % Plt Count (150-450) k/uL MPV Neutrophils % % Lymphocytes % % Monocytes % % Eosinophils % % Basophils % % Neutrophils # (1.3-7.7) k/uL Lymphocytes # (1.0-4.8) k/uL Monocytes # (0-1.0) k/uL Eosinophils # (0-0.7) k/uL Basophils # (0-0.2) k/uL Sodium 141 (137-145) mmol/L Potassium 5.1 (3.5-5.1) mmol/L Chloride 108 H (98-107) mmol/L Carbon Dioxide 26 (22-30) mmol/L Anion Gap 7 mmol/L BUN 14 (7-17) mg/dL Creatinine 0.53 (0.52-1.04) mg/dL Est GFR (CKD-EPI)AfAm >90 (>60 ml/min/1.73 sqM) Est GFR (CKD-EPI)NonAf >90 (>60 ml/min/1.73 sqM) Glucose 109 H (74-99) mg/dL Calcium 9.5 (8.4-10.2) mg/dL Phosphorus 3.2 (2.5-4.5) mg/dL Magnesium 2.3 (1.6-2.3) mg/dL Total Bilirubin 0.3 (0.2-1.3) mg/dL AST 35 (14-36) U/L ALT 37 H (4-34) U/L Alkaline Phosphatase 80 (38-126) U/L Creatine Kinase 48 (30-135) U/L Total Protein 7.5 (6.3-8.2) g/dL Albumin 4.6 (3.5-5.0) g/dL Lipase 118 (23-300) U/L Urine HCG, Qual (Not Detectd) Salicylates <1.0 mg/dL Urine Opiates Screen (NotDetected) Ur Oxycodone Screen (NotDetected) Urine Methadone Screen (NotDetected) Ur Propoxyphene Screen (NotDetected) Acetaminophen <10.0 ug/mL Ur Barbiturates Screen (NotDetected) U Tricyclic Antidepress (NotDetected) Ur Phencyclidine Scrn (NotDetected) Ur Amphetamines Screen (NotDetected) U Methamphetamines Scrn (NotDetected) U Benzodiazepines Scrn (NotDetected) Urine Cocaine Screen (NotDetected) U Marijuana (THC) Screen (NotDetected) Serum Alcohol 164 mg/dL Disposition <Rj Ragsdale - Last Filed: 03/21/20 02:22> Is patient prescribed a controlled substance at d/c from ED?: No Time of Disposition: 10:16 <Curtis Lantigua - Last Filed: 03/21/20 10:16> Clinical Impression: Abdominal pain, Depression, Alcohol intoxication Disposition: HOME SELF-CARE Condition: Stable Instructions (If sedation given, give patient instructions): Abdominal Pain (ED), Alcohol Intoxication (ED), Depression (ED), Help Prevent Suicide (ED) Additional Instructions: Please follow-up with primary care physician in the next day or 2 for recheck. Please follow-up with mental health services as directed. Avoid alcohol. Return for thoughts of self-harm, worsening symptoms, abdominal pain, or other concerns Referrals: Dieter Engle MD [Primary Care Provider] - 1-2 days
[2020-03-21] MEDS ORDERED: LORazepam 2 MG/ML INJ IV STA (01:47)
[2020-03-21 02:13] LABS: Basophils # (A) 0.1 k/uL (0-0.2); Basophils % (A) 1 %; Eosinophils # (A) 0.2 k/uL (0-0.7); Eosinophils % (A) 2 %; HCT 48.1 % (34.0-46.0); HGB 15.8 gm/dL (11.4-16.0); Lymphocytes # (A) 1.8 k/uL (1.0-4.8); Lymphocytes % (A) 23 %; MCH 31.4 pg (25.0-35.0); MCHC 32.8 g/dL (31.0-37.0); MCV 95.7 fL (80.0-100.0); Mean Platelet Volume 6.3; Monocytes # (A) 0.3 k/uL (0-1.0); Monocytes % (A) 4 %; Neutrophils # (A) 5.3 k/uL (1.3-7.7); Neutrophils % (A) 68 %; Platelet Count 348 k/uL (150-450); RBC 5.02 m/uL (3.80-5.40); RDW 12.4 % (11.5-15.5); WBC 7.8 k/uL (3.8-10.6)
[2020-03-21 02:25] LABS: ALT 37 U/L (4-34); AST 35 U/L (14-36); Acetaminophen <10.0 ug/mL; African American GFR (CKD) >90 (>60 ml/min/1.73 sqM); Albumin 4.6 g/dL (3.5-5.0); Alcohol 164 mg/dL; Alkaline Phosphatase 80 U/L (38-126); Anion Gap 7 mmol/L; Blood Urea Nitrogen 14 mg/dL (7-17); Calcium 9.5 mg/dL (8.4-10.2); Carbon Dioxide 26 mmol/L (22-30); Chloride 108 mmol/L (98-107); Creatine Kinase 48 U/L (30-135); Glucose 109 mg/dL (74-99); Lipase 118 U/L (23-300); Magnesium 2.3 mg/dL (1.6-2.3); Non-African American GFR(CKD) >90 (>60 ml/min/1.73 sqM); Phosphorus 3.2 mg/dL (2.5-4.5); Potassium 5.1 mmol/L (3.5-5.1); Salicylate <1.0 mg/dL; Sodium 141 mmol/L (137-145); Total Bilirubin 0.3 mg/dL (0.2-1.3); Total Protein 7.5 g/dL (6.3-8.2)
[2020-03-21 04:00] LABS: Amphetamine Screen,Urine Not Detected (NotDetected); Barbiturate Screen,Urine Not Detected (NotDetected); Benzodiazepines Screen,Urine Detected (NotDetected); Cocaine Screen,Urine Detected (NotDetected); Methadone Screen, Urine Not Detected (NotDetected); Opiate Screen,Urine Not Detected (NotDetected); Oxycodone Screen, Urine Not Detected (NotDetected); Phencyclidine Screen,Urine Not Detected (NotDetected); Tricyclic Antidepressant,Urine Not Detected (NotDetected); Urn Cannabinoid Scrn Not Detected (NotDetected)
== END 2020-03-21 10:31 | disposition home or self-care (01) ==
LOC: EC 00:50
DX: F10.129 Alcohol abuse with intoxication, unspecified (principal); F31.9 Bipolar disorder, unspecified; R10.9 Unspecified abdominal pain; J45.909 Unspecified asthma, uncomplicated; G40.909 Epilepsy, unspecified, not intractable, without status epilepticus; F17.200 Nicotine dependence, unspecified, uncomplicated; Z79.51 Long term (current) use of inhaled steroids; Z79.899 Other long term (current) drug therapy; Z88.0 Allergy status to penicillin; Z88.6 Allergy status to analgesic agent
CPT/HCPCS: 82075; 36415; 80053; 82550; 83690; 83735; 84100; 85025; 81025; 80306; 83520; 99284; 96374; 96375; G0480 ×2; J2060; J2405; 80320; 80329

== ENCOUNTER 2020-04-05 10:45 | Emergency (ER) | payer OTHER ==
[2020-04-05 11:11] VITALS: BP 102/71; RESP 18; TEMP 97.9
--- NOTE | 2020-04-05 11:42 | ED ---
Psych HPI - General Chief Complaint: Psychiatric Symptoms Stated Complaint: EPS eval Time Seen by Provider: 04/05/20 11:12 Source: patient, RN notes reviewed Mode of arrival: ambulatory Limitations: no limitations - History of Present Illness Initial Comments: 35-year-old female presented emergency department with chief complaint of psychiatric issues. Patient states she's having increasing depression, having some thoughts that she does not want to live anymore she states that she is not acting upon any thoughts of hurting herself. Patient does admit that she took Xanax that was not hers yesterday in which she states she took partially 5 tablets. Patient states this was to calm herself down. Patient also admits that she relapsed and drug use because she smokes marijuana which was laced with crack. Patient states she does have a history of crack cocaine use. Patient denies any homicidal ideation denies any alcohol abuse. Patient is on multiple medications with no improvement - Related Data Home Medications Medication Instructions Recorded Confirmed Albuterol Nebulized [Ventolin 2.5 mg INHALATION RT-QID PRN 10/07/19 04/05/20 Nebulized] Beclomethasone Dip 80 Mcg/Puff 1 puff INHALATION BID 10/07/19 04/05/20 [Qvar 80 mcg] Citalopram Hydrobromide 40 mg PO QAM 10/07/19 04/05/20 [Citalopram HBr] lamoTRIgine 100 mg PO BID 10/07/19 04/05/20 Albuterol Sulfate [Proair Hfa] 1 - 2 puff INHALATION RT-Q6H PRN 04/05/20 04/05/20 Baclofen [Lioresal] 10 mg PO QID PRN 04/05/20 04/05/20 Budesonide/Formoterol Fumarate 2 puff INHALATION RT-BID PRN 04/05/20 04/05/20 [Symbicort 160-4.5 Mcg Inhaler] Butalb/APAP/Caff 50-325-40Mg 1 tab PO Q6H PRN 04/05/20 04/05/20 [Fioricet 50-325-40] Docusate Sodium [Dok] 100 mg PO BID 04/05/20 04/05/20 Ergocalciferol [Vitamin D2] 50,000 unit PO SA 04/05/20 04/05/20 Fluticasone Propionate 110 Mcg 1 puff INHALATION RT-BID PRN 04/05/20 04/05/20 [Flovent 110 Mcg Inhaler (Mhu)] Meloxicam [Mobic] 7.5 mg PO BID 04/05/20 04/05/20 Na Phos,M-B/Na Phos,Di-Ba [Fleet 133 ml RECTAL DAILY PRN 04/05/20 04/05/20 Adult] Naloxone HCl [Narcan] 4 mg NASAL ONCE PRN 04/05/20 04/05/20 Omeprazole 20 mg PO DAILY 04/05/20 04/05/20 Polyethylene Glycol 3350 [Miralax] 17 gm PO DAILY 04/05/20 04/05/20 busPIRone HCL 15 mg PO TID PRN 04/05/20 04/05/20 Allergies Allergy/AdvReac Type Severity Reaction Status Date / Time amoxicillin Allergy Unknown Verified 04/05/20 11:55 ibuprofen Allergy Anaphylaxis Verified 04/05/20 11:55 Penicillins Allergy Unknown Verified 04/05/20 11:55 Review of Systems ROS Statement: Those systems with pertinent positive or pertinent negative responses have been documented in the HPI. ROS Other: All systems not noted in ROS Statement are negative. Past Medical History Past Medical History: Asthma, Seizure Disorder Additional Past Medical History / Comment(s): migraines, asthma, last seizure 08/2019 History of Any Multi-Drug Resistant Organisms: None Reported Past Surgical History: Hysterectomy Additional Past Surgical History / Comment(s): EYE SURGERY as child Past Anesthesia/Blood Transfusion Reactions: Postoperative Nausea & Vomiting (PONV) Past Psychological History: Bipolar, Depression Smoking Status: Former smoker Past Alcohol Use History: Rare Past Drug Use History: Cocaine, Marijuana, Methamphetamine General Exam Limitations: no limitations General appearance: alert, in no apparent distress Head exam: Present: atraumatic, normocephalic, normal inspection Eye exam: Present: normal appearance, PERRL, EOMI. Absent: scleral icterus, conjunctival injection, periorbital swelling ENT exam: Present: normal exam, mucous membranes moist Neck exam: Present: normal inspection, full ROM. Absent: tenderness, meningismus, lymphadenopathy Respiratory exam: Present: normal lung sounds bilaterally. Absent: respiratory distress, wheezes, rales, rhonchi, stridor Cardiovascular Exam: Present: regular rate, normal rhythm, normal heart sounds. Absent: systolic murmur, diastolic murmur, rubs, gallop, clicks Neurological exam: Present: alert, oriented X3 Psychiatric exam: Present: depressed, flat affect Course Vital Signs 04/05/20 04/05/20 04/05/20 11:05 12:31 12:44 Temperature 97.9 F Pulse Rate 79 66 68 Respiratory 18 Rate Blood Pressure 102/71 O2 Sat by Pulse 100 Oximetry Medical Decision Making - Medical Decision Making Patient evaluated by EPS and CM patient signed safety plan, patient recommend a follow-up outpatient with resources. They did discuss 5 for drug rehab. Return parameters were discussed. Disposition Clinical Impression: Depression Disposition: HOME SELF-CARE Condition: Stable Instructions (If sedation given, give patient instructions): Depression (ED) Additional Instructions: Please return to the Emergency Department if symptoms worsen or any other concerns. Is patient prescribed a controlled substance at d/c from ED?: No Referrals: Dieter Engle MD [Primary Care Provider] - 1-2 days Time of Disposition: 13:09
[2020-04-05] MEDS ORDERED: IPRATROPIUM-ALBUTEROL 3 ML NEB INHALATION STA (11:44)
[2020-04-05 12:44] VITALS: PULSE 68
== END 2020-04-05 13:39 | disposition home or self-care (01) ==
LOC: EC 10:45
DX: F32.9 Major depressive disorder, single episode, unspecified (principal); J45.909 Unspecified asthma, uncomplicated; G40.909 Epilepsy, unspecified, not intractable, without status epilepticus; Z79.899 Other long term (current) drug therapy; Z79.1 Long term (current) use of non-steroidal anti-inflammatories (NSAID); Z79.51 Long term (current) use of inhaled steroids; Z88.6 Allergy status to analgesic agent; Z88.0 Allergy status to penicillin; Z87.891 Personal history of nicotine dependence
CPT/HCPCS: 82075; 94640; 99284

== ENCOUNTER → 2020-10-15 | Outpatient (CLI) | payer OTHER ==
--- NOTE | 2020-10-15 12:32 | USB ---
EXAMINATION TYPE: US breast complete BILAT DATE OF EXAM: 10/15/2020 COMPARISON: Mammogram same date CLINICAL HISTORY: N64.52 nipple drainage. All 4 quadrants in the retroareolar region of both breasts were scanned with ultrasound. Bilateral ax illa scanned with ultrasound. Multiple bilateral simple, complicated and clustered cysts are seen. In the right breast at 5:00, there is a 0.6 x 0.4 x 0.6 cm hypoechoic lesion which most likely repres ents a complicated cyst and is probably benign. Follow-up right breast ultrasound is recommended in 6 months. IMPRESSION: Follow-up right breast ultrasound is recommended in 6 months for the 0.6 cm lesion at 5:00. BI-RADS 3, probably benign.
--- NOTE | 2020-10-15 12:55 | MM ---
Reason for exam: clinical finding. Last mammogram was performed 1 year and 1 month ago. History: Family history of breast cancer in maternal aunt at age 40 and breast cancer in paternal aunt at age 40. Benign excisional biopsy of the right breast, 2019. Indicated problem(s): palpable abnormality and bloody discharge in both breasts. Physical Findings: Nurse Summary: 1cm nodule in the right breast at 4 o'clock, 2cm nodule in the right breast at 11 o'clock and a 1cm nodule in the left breast at 8 o'clock (nurse db). MG Diagnostic Mammo w CAD [place] Bilateral CC, MLO, CC with magnification, and ML with magnification view(s) were taken. Prior study comparison: September 16, 2019, bilateral MG diagnostic mammo w CAD [place]. The breast tissue is heterogeneously dense. This may lower the sensitivity of mammography. No mammogram correlate for bilateral palpable and bloody nipple discharge. Bilateral ultrasound recommended. These results were verbally communicated with the patient and result sheet given to the patient on 10/15/20. ASSESSMENT: Incomplete: need additional imaging evaluation, BI-RAD 0 RECOMMENDATION: Ultrasound of both breasts.
== END | disposition home or self-care (01) ==
LOC: RADMAMWWP 10:46
PROVIDERS: ATTEND Surgery
DX: N64.52 Nipple discharge (principal); Z80.3 Family history of malignant neoplasm of breast
CPT/HCPCS: 77066

== ENCOUNTER → 2021-10-14 | Outpatient (CLI) | payer OTHER ==
[2021-10-14 13:41] VITALS: BP 109/74; PULSE 82; RESP 18; TEMP 98.7
--- NOTE | 2021-10-14 14:06 | P.GSHP ---
History of Present Illness H&P Date: 10/14/21 Chief Complaint: Nipple discharge Lolis is a 36-year-old white female seen in consultation for Dr. Engle regarding nipple discharge. Of importance is the fact that she underwent a right breast duct exploration on . This revealed fibrocystic breast disease as well as intraductal papillomatosis. She had a bilateral mammogram performed on 5321. Persistent asymmetric areas of density in the right breast were stable. There was a new spiculated density along the anterior portion of the left breast 9 mm in diameter and visible on the MLO view. It was recommended that a diagnostic left breast mammogram with spot compression cone- down views in the MLO and lateral projection be done. The right breast was felt to be stable. She has been having left breast nipple discharge for about 4 years. She has not been having any right breast discharge since she had the right nipple duct exploration. The bleeding is intermittent from the left nipple. Approximately a week ago she had a large amount of blood after she woke up. surgery: Right breast duct exploration she has not had bloody nipple discharge in that site since the exploration No other biopsies or surgery on the breast had been done She does not feel any specific masses in her breast at this time. She does complain of pain in her left breast. It has been occurring for 4 years. It is worse with touch. Note from DR. Engle 08-31-21 CAffiene: none nicotine:none chocolate: occasional hormones: patient had a partial hysterectomy, only has one ovary; done for endometriosis Family history: maternal aunt: breast cancer ( genetic test -) paternal aunt: breast cancer paternal grandmother: breast cancer 2 paternal great aunts: breast cancer cousin: colon cancer Hormonal History: menarche: 12 , age at : 19, breast fed: no hysterectomy at 26, left one ovary hormones: none BCP: used at 19 Surgical History: I surgery Partial hysterectomy Medical History: asthma COPD anxiety depression Social History: nicotine: stopped 2 years ago alcohol: stopped 2 years ago (was an alcoholic) cocaine: in the past, marijuana intermittently - Constitutional Constitutional: Reports sweats - EENT Eyes: denies blurred vision, denies pain Ears: deny: decreased hearing, tinnitus Ears, nose, mouth and throat: Reports headache - Breasts Breasts: bilateral: as per HPI - Cardiovascular Cardiovascular: Reports shortness of breath, Denies chest pain - Respiratory Comment: asthma, COPD - Gastrointestinal Gastrointestinal: Reports constipation, Denies abdominal pain, Denies diarrhea, Denies nausea, Denies vomiting - Genitourinary (Female) Genitourinary: Denies dysuria, Denies hematuria - Menstruation Menstruation: Reports post hysterectomy - Musculoskeletal Musculoskeletal: Reports myalgias - Integumentary Integumentary: Denies pruritus, Denies rash - Neurological Neurological: Denies numbness, Denies weakness - Psychiatric Psychiatric: Reports anxiety, Reports depression - Endocrine Endocrine: Reports weight change, Denies fatigue - Hematologic/Lymphatic Comment: none - Allergic/Immunologic Allergic/Immunologic: Reports as per HPI Past Medical History Past Medical History: Asthma, Seizure Disorder Additional Past Medical History / Comment(s): migraines, asthma, last seizure 08/2019 History of Any Multi-Drug Resistant Organisms: None Reported Past Surgical History: Hysterectomy Additional Past Surgical History / Comment(s): EYE SURGERY as child Past Anesthesia/Blood Transfusion Reactions: Postoperative Nausea & Vomiting (PONV) Past Psychological History: Bipolar, Depression Smoking Status: Former smoker Past Alcohol Use History: Rare Past Drug Use History: Cocaine, Marijuana, Methamphetamine Medications and Allergies Home Medications Medication Instructions Recorded Confirmed Type Albuterol Nebulized [Ventolin 2.5 mg INHALATION RT-QID PRN 10/07/19 04/05/20 History Nebulized] Beclomethasone Dip 80 Mcg/Puff 1 puff INHALATION BID 10/07/19 04/05/20 History [Qvar 80 mcg] Citalopram Hydrobromide 40 mg PO QAM 10/07/19 04/05/20 History [Citalopram HBr] lamoTRIgine 100 mg PO BID 10/07/19 04/05/20 History Albuterol Sulfate [Proair Hfa] 1 - 2 puff INHALATION RT-Q6H PRN 04/05/20 04/05/20 History Baclofen [Lioresal] 10 mg PO QID PRN 04/05/20 04/05/20 History Budesonide/Formoterol Fumarate 2 puff INHALATION RT-BID PRN 04/05/20 04/05/20 History [Symbicort 160-4.5 Mcg Inhaler] Butalb/APAP/Caff 50-325-40Mg 1 tab PO Q6H PRN 04/05/20 04/05/20 History [Fioricet 50-325-40] Docusate Sodium [Dok] 100 mg PO BID 04/05/20 04/05/20 History Ergocalciferol [Vitamin D2] 50,000 unit PO SA 04/05/20 04/05/20 History Fluticasone Propionate 110 Mcg 1 puff INHALATION RT-BID PRN 04/05/20 04/05/20 History [Flovent 110 Mcg Inhaler (Mhu)] Meloxicam [Mobic] 7.5 mg PO BID 04/05/20 04/05/20 History Na Phos,M-B/Na Phos,Di-Ba [Fleet 133 ml RECTAL DAILY PRN 04/05/20 04/05/20 History Adult] Naloxone HCl [Narcan] 4 mg NASAL ONCE PRN 04/05/20 04/05/20 History Omeprazole 20 mg PO DAILY 04/05/20 04/05/20 History busPIRone HCL 15 mg PO TID PRN 04/05/20 04/05/20 History polyethylene glycoL 3350 [Miralax] 17 gm PO DAILY 04/05/20 04/05/20 History Allergies Allergy/AdvReac Type Severity Reaction Status Date / Time amoxicillin Allergy Unknown Verified 10/14/21 13:28 ibuprofen Allergy Anaphylaxis Verified 10/14/21 13:28 Penicillins Allergy Unknown Verified 10/14/21 13:28 Surgical - Exam BMI: 24.6 - General no distress - Eyes normal ocular movement - Neck trachea midline - Respiratory normal expansion, normal respiratory effort - Cardiovascular Heart Sounds: normal: S1, S2 - Integumentary normal turgor - Neurologic no disoriented, no combative - Musculoskeletal normal gait, normal posture - Psychiatric oriented to time, oriented to person, oriented to place, speech is normal, memory intact Breast Exam: BRA: medium sports bra inspection: Well-healed scar left breast from prior surgery, bilateral grade 3 ptosis Palpation: Right breast: Multi-positional exam fibrocystic changes no dominant masses or nodules of concern Right axilla: No adenopathy of concern Left breast: Multi-positional exam fibrocystic changes, no dominant masses or nodules of concern, green discharge 9:00 nipple position with palpation Left axilla: No adenopathy of concern Left nipple discharge guaiac study done which is negative Assessment and Plan Assessment: Impression: asthma COPD anxiety depression abnormal left breast mammogram Plan: As per radiology requested is recommended the patient have additional views mammographically of the left breast: They should be spot compression cone-down views in the MLO and lateral projection as well as the cc view Left breast ultrasound At this time the discharge from the left nipple was noted to be guaiac negative and appears to be consistent with fibrocystic fluid consider genetic testing; time the patient wishes to wait CC: DR. Engle
== END ==
LOC: WWCWWP 13:18
PROVIDERS: ATTEND Surgery
DX: R92.8 Other abnormal and inconclusive findings on diagnostic imaging of breast (principal); F41.9 Anxiety disorder, unspecified; J44.9 Chronic obstructive pulmonary disease, unspecified; G40.909 Epilepsy, unspecified, not intractable, without status epilepticus; Z87.891 Personal history of nicotine dependence; G43.909 Migraine, unspecified, not intractable, without status migrainosus; F31.9 Bipolar disorder, unspecified; Z88.0 Allergy status to penicillin; Z88.1 Allergy status to other antibiotic agents; Z88.6 Allergy status to analgesic agent

== ENCOUNTER → 2022-10-23 | Outpatient (CLI) | payer OTHER ==
--- NOTE | 2022-10-23 15:06 | USB ---
Reason for Exam: Clinical finding. Patient History: Menarche at age 11. First Full-Term at age 19. Left ovary removed at age 26. Hysterectomy at age 26. Postmenopausal. 2019, Benign Excisional Biopsy on the right side. Paternal aunt had breast cancer, age 40. Maternal aunt had breast cancer, age 40. Risk Values: Brittny 5 year model risk: 0.4%. NCI Lifetime model risk: 10.1%. Technique: Method: Whole Breast Handheld. Prior Study Comparison: 09/16/2019 Bilateral Diagnostic Mammogram, [facility]. 10/15/2020 Bilateral Diagnostic Mammogram, [facility]. Findings: The whole breast of both breasts, the axilla of both breasts and the retroareolar of both breasts were scanned. A complete US of all four quadrants of the breast and retro-areolar region were reviewed. Additional evaluation of both axilla. Slightly increased size of the cystic lesion with heterogenous component in the right breast at 1:00 7 cm from the nipple measuring 0.9 x 0.3 x 0.7 cm. No internal color flow. Previously measured up to 0.6 cm. This could represent a cyst with debris. Redemonstration of a complex suspected cluster of cysts within the right breast at 6:00 3 sagittal nipple measuring 1.3 x 0.9 x 1.1 cm. Previously measured up to 1.5 cm. There is increased internal echogenicity possibly representing debris. No internal color flow identified. Additional simple appearing cysts demonstrated within the right breast with largest at 10:00 8 cm in the nipple. Redemonstration of a suspected complex cluster of cysts within the left breast at 4:00 8 cm the nipple measuring 1.7 x 0.6 x 1.7 cm. There is subtly increased internal echogenicity likely representing debris. No internal color flow identified. Previously measured up to 1.8 cm. Overall Assessment: Probably benign, BI-RAD 3 Management: Diagnostic Breast Ultrasound of both breasts in 6 months. A clinical breast exam by your physician is recommended on an annual basis and results should be correlated with mammographic findings. This exam should not preclude additional follow-up of suspicious palpable abnormalities. Results were given to the patient verbally at the time of exam. Electronically signed and approved by: Rian Segal D.O.
== END | disposition home or self-care (01) ==
LOC: RADMAMWWP 13:55
PROVIDERS: ATTEND Surgery
DX: N64.52 Nipple discharge (principal); N64.4 Mastodynia; Z80.3 Family history of malignant neoplasm of breast; Z78.0 Asymptomatic menopausal state
CPT/HCPCS: 77066; 76641; G0279; 77062

== ENCOUNTER 2023-01-07 14:09 | Emergency (ER) | payer OTHER ==
[2023-01-07 14:22] VITALS: BP 133/75; PULSE 104; RESP 18; TEMP 98.8
--- NOTE | 2023-01-07 14:49 | ED ---
General Adult HPI - General Source: patient, RN notes reviewed Mode of arrival: ambulatory Limitations: no limitations <Shanice Alfredo - Last Filed: 01/07/23 14:50> <Wilder Mcdaniel - Last Filed: 01/07/23 19:09> - General Chief complaint: Recheck/Abnormal Lab/Rx Stated complaint: Vaginal bleeding - History of Present Illness Initial comments: 37 year old female presents to the emergency department for chief complaint of rectal pain. She states that she has a history of hemorrhoids. She states today she noticed increase pain and some blood. (Shanice Alfredo) 37-year-old female sitting ED with a chief complaint of hemorrhoids. Patient states that she has had a hemorrhoid for the past 5 years. States recently it has increased in pain and this morning it started bleeding on the shower. States that she felt lightheaded during this. States that she is ALLERGIC to ibuprofen and has not been taking anything for the pain. States that it occasionally pops out and comes back in on its own. Denies urinary symptoms. Denies abdominal pain. Denies chest pain shortness of breath. No complaints. (Wilder Mcdaniel) - Related Data Home Medications Medication Instructions Recorded Confirmed Albuterol Nebulized [Ventolin 2.5 mg INHALATION RT-QID PRN 10/07/19 04/05/20 Nebulized] Beclomethasone Dip 80 Mcg/Puff 1 puff INHALATION BID 10/07/19 04/05/20 [Qvar 80 mcg] Citalopram Hydrobromide 40 mg PO QAM 10/07/19 04/05/20 [Citalopram HBr] lamoTRIgine 100 mg PO BID 10/07/19 04/05/20 Albuterol Sulfate [Proair Hfa] 1 - 2 puff INHALATION RT-Q6H PRN 04/05/20 04/05/20 Baclofen [Lioresal] 10 mg PO QID PRN 04/05/20 04/05/20 Budesonide/Formoterol Fumarate 2 puff INHALATION RT-BID PRN 04/05/20 04/05/20 [Symbicort 160-4.5 Mcg Inhaler] Butalb/APAP/Caff 50-325-40Mg 1 tab PO Q6H PRN 04/05/20 04/05/20 [Fioricet 50-325-40] Docusate Sodium [Dok] 100 mg PO BID 04/05/20 04/05/20 Ergocalciferol [Vitamin D2] 50,000 unit PO SA 04/05/20 04/05/20 Fluticasone Propionate 110 Mcg 1 puff INHALATION RT-BID PRN 04/05/20 04/05/20 [Flovent 110 Mcg Inhaler (Mhu)] Meloxicam [Mobic] 7.5 mg PO BID 04/05/20 04/05/20 Na Phos,M-B/Na Phos,Di-Ba [Fleet 133 ml RECTAL DAILY PRN 04/05/20 04/05/20 Adult] Naloxone HCl [Narcan] 4 mg NASAL ONCE PRN 04/05/20 04/05/20 Omeprazole 20 mg PO DAILY 04/05/20 04/05/20 busPIRone HCL 15 mg PO TID PRN 04/05/20 04/05/20 polyethylene glycoL 3350 [Miralax] 17 gm PO DAILY 04/05/20 04/05/20 Allergies Allergy/AdvReac Type Severity Reaction Status Date / Time amoxicillin Allergy Unknown Verified 01/07/23 14:22 ibuprofen Allergy Anaphylaxis Verified 01/07/23 14:22 Penicillins Allergy Unknown Verified 01/07/23 14:22 Review of Systems ROS Other: All systems not noted in ROS Statement are negative. <Shanice Alfredo - Last Filed: 01/07/23 14:50> ROS Other: All systems not noted in ROS Statement are negative. <Wilder Mcdaniel - Last Filed: 01/07/23 19:09> ROS Statement: Those systems with pertinent positive or pertinent negative responses have been documented in the HPI. Past Medical History Past Medical History: Asthma, Seizure Disorder Additional Past Medical History / Comment(s): migraines, asthma, last seizure 08/2019 History of Any Multi-Drug Resistant Organisms: None Reported Past Surgical History: Hysterectomy Additional Past Surgical History / Comment(s): EYE SURGERY as child Past Anesthesia/Blood Transfusion Reactions: Postoperative Nausea & Vomiting (PONV) Past Psychological History: Bipolar, Depression Smoking Status: Former smoker Past Alcohol Use History: Rare Past Drug Use History: Cocaine, Marijuana, Methamphetamine <Shanice Alfredo - Last Filed: 01/07/23 14:50> General Exam Limitations: no limitations <Shanice Alfredo - Last Filed: 01/07/23 14:50> Limitations: no limitations General appearance: alert, in no apparent distress Eye exam: Present: normal appearance Neck exam: Present: normal inspection Respiratory exam: Present: normal lung sounds bilaterally Cardiovascular Exam: Present: regular rate, normal rhythm GI/Abdominal exam: Present: soft (No tenderness palpation. No rebound guarding or rigidity.) Rectal exam: Present: other (Left lateral internal hemorrhoid palpated. No active bleeding.) Neurological exam: Present: alert, oriented X3 Skin exam: Present: warm, dry <Wilder Mcdaniel - Last Filed: 01/07/23 19:09> - General Exam Comments Initial Comments: Visual Physical Exam Vital signs reviewed General: Well-appearing, nontoxic, no acute distress. Head: Normocephalic, atraumatic Eyes: PERRLA, EOMI ENT: Airway patent Chest: Nonlabored breathing Skin: No visual rash, normal skin tone Neuro: Alert and oriented 3 Musculoskeletal: No gross abnormalities (Shanice Alfredo) Course Vital Signs 01/07/23 14:18 Temperature 98.8 F Pulse Rate 104 H Respiratory 18 Rate Blood Pressure 133/75 O2 Sat by Pulse 100 Oximetry Medical Decision Making <Shanice Alfredo - Last Filed: 01/07/23 14:50> <Wilder Mcdaniel - Last Filed: 01/07/23 19:09> - Medical Decision Making I preformed the quick note portion of this chart. Electronically signed by Shanice Alfredo PA-C (Shanice Alfredo) Was pt. sent in by a medical professional or institution (RADHA Almonte, MARKETING SYSTEMS ANALYST, urgent care, hospital, or fci...) When possible be specific @ -No Did you speak to anyone other than the patient for history (EMS, parent, family, police, friend...)? What history was obtained from this source @ -No Did you review nursing and triage notes (agree or disagree)? Why? @ -I reviewed and agree with nursing and triage notes Were old charts reviewed (outside hosp., previous admission, EMS record, old EKG, old radiological studies, urgent care reports/EKG's, fci records)? Report findings @ -No old charts were reviewed Differential Diagnosis (chest pain, altered mental status, abdominal pain women, abdominal pain men, vaginal bleeding, weakness, fever, dyspnea, syncope, headache, dizziness, GI bleed, back pain, seizure, CVA, palpatations, mental health, musculoskeletal)? @ -Differential Abdominal Pain Women: Appendicitis, Cholecystitis, diverticulosis, ischemic bowel, pancreatitis, hepatitis, UTI, gastroenteritis, AAA, incarcerated hernia, bowel obstruction, constipation, inflammatory bowel, hepatitis, peptic ulcer disease, splenic infarction, perforated viscus, vulvitis, ovarian torsion, PID, kidney stone, placenta abruption, this is not meant to be an all-inclusive list EKG interpreted by me (3pts min.). @ -None X-rays interpreted by me (1pt min.). @ -None done CT interpreted by me (1pt min.). @ -None done U/S interpreted by me (1pt. min.). @ -None done What testing was considered but not performed or refused? (CT, X-rays, U/S, labs)? Why? @ -CBC was considered to rule out anemia due to patient's episode of bleeding and her feeling lightheaded however at this time patient reports that her ride is here and she would not like to have any blood work performed. What meds were considered but not given or refused? Why? @ -None Did you discuss the management of the patient with other professionals (professionals i.e. , PA, MARKETING SYSTEMS ANALYST, lab, RT, psych nurse, social work specialist, crop grain or livestock farmer, teacher, benefits officer, child support case officer)? Give summary @ -No Was smoking cessation discussed for >3mins.? @ -No Was critical care preformed (if so, how long)? @ -No Were there social determinants of health that impacted care today? How? (Homelessness, low income, unemployed, alcoholism, drug addiction, transportation, low edu. Level, literacy, decrease access to med. care, halfway, rehab)? @ -No Was there de-escalation of care discussed even if they declined (Discuss DNR or withdrawal of care, Hospice)? DNR status @ -No What co-morbidities impacted this encounter? (DM, HTN, Smoking, COPD, CAD, Cancer, CVA, ARF, Chemo, Hep., AIDS, mental health diagnosis, sleep apnea, morbid obesity)? @ -None Was patient admitted / discharged? Hospital course, mention meds given and route, prescriptions, significant lab abnormalities, going to OR and other pertinent info. @ -Discharge A 37-year-old female to the ED with chief complaint of hemorrhoids. States ongoing for the last 5 years however today increasing pain and episode of bleeding over the last few days worse today. Noted she felt lightheaded as well as bleeding however now reports that she is asymptomatic other than rectal pain due to hemorrhoid. Patient declined blood work to rule out anemia. Advises continuing are the prescribed medications. Patient has follow-up with Dr. lerma at the end of next month. Advised following up as scheduled. Discharged home in stable condition. Undiagnosed new problem with uncertain prognosis? @ -No Drug Therapy requiring intensive monitoring for toxicity (Heparin, Nitro, Insulin, Cardizem)? @ -No Were any procedures done? @ -No Diagnosis/symptom? @ -Internal hemorrhoid Acute, or Chronic, or Acute on Chronic? @ -Acute On chronic Uncomplicated (without systemic symptoms) or Complicated (systemic symptoms)? @ -Uncomplicated Side effects of treatment? @ -No Exacerbation, Progression, or Severe Exacerbation? @ -No Poses a threat to life or bodily function? How? (Chest pain, USA, CA, pneumonia, PE, COPD, DKA, ARF, appy, cholecystitis, CVA, Diverticulitis, Homicidal, Suicidal, threat to staff... and all critical care pts) @ -No (Wilder Mcdaniel) Disposition <Shanice Alfredo - Last Filed: 01/07/23 14:50> Is patient prescribed a controlled substance at d/c from ED?: No Time of Disposition: 19:09 <Wilder Mcdaniel - Last Filed: 01/07/23 19:09> Clinical Impression: Internal hemorrhoid Disposition: HOME SELF-CARE Condition: Good Instructions (If sedation given, give patient instructions): Hemorrhoids (ED), Hemorrhoidectomy (DC), Sitz Bath (DC), High Fiber Diet (ED) Additional Instructions: Please return to the Emergency Department if symptoms worsen or any other concerns. Referrals: Dieter Engle MD [Primary Care Provider] - 1-2 days
[2023-01-07] MEDS ORDERED: ACETAMINOPHEN TAB 500 MG TAB PO STA (18:53)
== END 2023-01-07 19:24 | disposition home or self-care (01) ==
LOC: EC 14:09
DX: K64.8 Other hemorrhoids (principal); J45.909 Unspecified asthma, uncomplicated; F31.9 Bipolar disorder, unspecified; F12.90 Cannabis use, unspecified, uncomplicated; F15.90 Other stimulant use, unspecified, uncomplicated; F14.90 Cocaine use, unspecified, uncomplicated; Z87.891 Personal history of nicotine dependence; Z79.899 Other long term (current) drug therapy; Z79.51 Long term (current) use of inhaled steroids; Z88.0 Allergy status to penicillin; Z88.6 Allergy status to analgesic agent
CPT/HCPCS: 99283

== ENCOUNTER 2023-05-15 08:42 | Day surgery (SDC) | payer OTHER ==
[2023-05-07 15:36] VITALS: BMI 26.4
[~2023-05-15 08:42] MED LIST changes: -ACETAMINOPHEN TAB 500 MG TAB PO ONE; -HEPARIN SODIUM,PORCINE 5,000 UNIT/ML 1 ML VIAL SQ ONE; +LACTATED RINGERS 1,000 ML IV SCH
[2023-05-15 09:30] VITALS: RESP 16; TEMP 98.4
[2023-05-15] MEDS ORDERED: LIDOCAINE 1% INJ 10MG/ML (20 ML MDV) ONE (09:37)
[2023-05-15] MEDS ORDERED: PROPOFOL 10 MG/ML 20 ML VIAL IV ONE (09:37)
--- NOTE | 2023-05-15 09:48 | P.GSHP ---
History of Present Illness H&P Date: 05/15/23 Chief Complaint: Rectal bleeding 38 row female here for colonoscopy. She has had rectal pain and bleeding. She says she feels something after bowel movements externally. Past Medical History Past Medical History: Asthma, GERD/Reflux, Seizure Disorder Additional Past Medical History / Comment(s): migraines, asthma, last seizure 08/2019. BLEEDING HEMORRHOIDS History of Any Multi-Drug Resistant Organisms: None Reported Past Surgical History: Hysterectomy Additional Past Surgical History / Comment(s): EYE SURGERY as child Past Anesthesia/Blood Transfusion Reactions: Postoperative Nausea & Vomiting (PONV) Additional Past Anesthesia/Blood Transfusion Reaction / Comment(s): no blood transfusion Smoking Status: Former smoker Medications and Allergies Home Medications Medication Instructions Recorded Confirmed Type Albuterol Nebulized [Ventolin 2.5 mg INHALATION RT-QID PRN 10/07/19 05/07/23 History Nebulized] Beclomethasone Dip 80 Mcg/Puff 1 puff INHALATION BID 10/07/19 05/07/23 History [Qvar 80 mcg] Citalopram Hydrobromide 40 mg PO QAM 10/07/19 05/07/23 History [Citalopram HBr] lamoTRIgine 100 mg PO BID 10/07/19 05/07/23 History Albuterol Sulfate [Proair Hfa] 1 - 2 puff INHALATION RT-Q6H PRN 04/05/20 05/07/23 History Baclofen [Lioresal] 10 mg PO QID PRN 04/05/20 05/07/23 History Budesonide/Formoterol Fumarate 2 puff INHALATION RT-BID PRN 04/05/20 05/07/23 History [Symbicort 160-4.5 Mcg Inhaler] Butalb/APAP/Caff 50-325-40Mg 1 tab PO Q6H PRN 04/05/20 05/07/23 History [Fioricet 50-325-40] Docusate Sodium [Dok] 100 mg PO BID 04/05/20 05/07/23 History Ergocalciferol [Vitamin D2] 50,000 unit PO SA 04/05/20 05/07/23 History Fluticasone Propionate 110 Mcg 1 puff INHALATION RT-BID PRN 04/05/20 05/07/23 History [Flovent 110 Mcg Inhaler (Mhu)] Meloxicam [Mobic] 7.5 mg PO BID 04/05/20 05/07/23 History Na Phos,M-B/Na Phos,Di-Ba [Fleet 133 ml RECTAL DAILY PRN 04/05/20 05/07/23 History Adult] Naloxone HCl [Narcan] 4 mg NASAL ONCE PRN 04/05/20 05/07/23 History Omeprazole 20 mg PO DAILY 04/05/20 05/07/23 History busPIRone HCL 7.5 mg PO TID PRN 04/05/20 05/07/23 History polyethylene glycoL 3350 [Miralax] 17 gm PO DAILY 04/05/20 05/07/23 History Allergies Allergy/AdvReac Type Severity Reaction Status Date / Time amoxicillin Allergy Anaphylaxis Verified 05/15/23 09:15 ibuprofen Allergy Anaphylaxis Verified 05/15/23 09:15 Penicillins Allergy Unknown Verified 05/15/23 09:15 Childhood Surgical - Exam Vital Signs Temp Pulse Resp BP Pulse Ox 98.4 F 101 H 16 120/74 98 05/15/23 09:23 05/15/23 09:23 05/15/23 09:23 05/15/23 09:23 05/15/23 09:23 Physical exam: General: Well-developed, well-nourished HEENT: Normocephalic, sclerae nonicteric Abdomen: Nontender, nondistended Extremities: No edema Neuro: Alert and oriented Assessment and Plan (1) Rectal bleeding Narrative/Plan: Will proceed with colonoscopy at this time Current Visit: Yes Status: Acute Code(s): K62.5 - HEMORRHAGE OF ANUS AND RECTUM SNOMED Code(s): 24775620
--- NOTE | 2023-05-15 09:55 | P.PCN ---
Date of Procedure: 05/15/23 Procedure(s) Performed: PREOPERATIVE DIAGNOSIS: Rectal bleeding POSTOPERATIVE DIAGNOSIS: Solid stool unable to proceed PROCEDURE: Attempted colonoscopy ANESTHESIA: MAC SURGEON: Geoff Do M.D. SPECIMENS: None ENDOSCOPIC PROCEDURE: The patient was placed on the endoscopy table in the left decubitus position. The Olympus colonoscope was inserted into the anus and passed under direct visualization to the mid rectum. There was solid stool throughout. I question whether the patient took any prep at all. Some of the stool was disimpacted manually. The anus was somewhat patulous but there was no obvious abnormalities noted. The patient was taken to the recovery room in stable condition per anesthesia guidelines. RECOMMENDATIONS: Will discuss findings with patient. Possible reprep.
[2023-05-15] MEDS ORDERED: ONDANSETRON 4 MG/2 ML VIAL ONE (10:36)
[2023-05-15] MEDS ORDERED: ONDANSETRON 4 MG/2 ML VIAL IVP ONE (10:40)
[2023-05-15] MEDS ORDERED: FAMOTIDINE 20 MG/2 ML VIAL IVP ONE (10:41)
[2023-05-15 11:03] VITALS: BP 117/74; PULSE 71
== END 2023-05-15 11:11 | disposition home or self-care (01) ==
LOC: ORWHC2ENDO 08:42
PROVIDERS: ATTEND Surgery
DX: K62.5 Hemorrhage of anus and rectum (principal); K64.8 Other hemorrhoids; J45.909 Unspecified asthma, uncomplicated; K21.9 Gastro-esophageal reflux disease without esophagitis; G40.909 Epilepsy, unspecified, not intractable, without status epilepticus; F32.A Depression, unspecified; G43.909 Migraine, unspecified, not intractable, without status migrainosus; F12.90 Cannabis use, unspecified, uncomplicated; Z79.51 Long term (current) use of inhaled steroids; Z79.899 Other long term (current) drug therapy; Z88.0 Allergy status to penicillin; Z88.6 Allergy status to analgesic agent; Z98.890 Other specified postprocedural states; Z87.891 Personal history of nicotine dependence; Z90.710 Acquired absence of both cervix and uterus
CPT/HCPCS: 45378; J2405; J2001; J3490; J2704

== ENCOUNTER → 2024-08-13 | Outpatient (CLI) | payer OTHER ==
--- NOTE | 2024-08-13 11:52 | MM ---
Reason for Exam: Clinical finding. Last mammogram was performed 1 year(s) and 10 month(s) ago. Indicated Problems: Bloody discharge of the left side for 5 Year(s). Non-bloody discharge of the right side (Yellow) for 5 Year(s). Pain of both sides (Global) for 5 Year(s) : all over tenderness. Patient History: Menarche at age 11. First Full-Term at age 19. Left ovary removed at age 26. Hysterectomy at age 26. Postmenopausal. 2019, Benign Excisional Biopsy on the right side. Paternal aunt had breast cancer, age 40. Maternal aunt had breast cancer, age 40. Risk Values: Brittny 5 year model risk: 0.5%. NCI Lifetime model risk: 10.0%. Prior Study Comparison: 09/16/2019 Bilateral Diagnostic Mammogram, [facility]. 10/15/2020 Bilateral Diagnostic Mammogram, [facility]. 10/23/2022 Bilateral MG 3D diag mammo w/cad [place], [facility]. 10/23/2022 Bilateral US breast BIL[place], [facility]. Tissue Density: The breasts are heterogeneously dense, which may obscure small masses. Findings: Analyzed By CAD. There is waxing and waning nodularity seen throughout the left breast for which ultrasound is recommended. There is also waxing and waning nodularity within the upper half of the right breast. Ultrasound is also advised. No suspicious microcalcifications present. Overall Assessment: Incomplete: need additional imaging evaluation, BI-RAD 0 Management: Diagnostic Breast Ultrasound of both breasts. . Results were given to the patient verbally at the time of exam. Patient should continue monthly self-breast exams. A clinical breast exam by your physician is recommended on an annual basis. This exam should not preclude additional follow-up of suspicious palpable abnormalities. Note on Brittny scores and lifetime risk: 1. A Brittny score greater than 3% is considered moderate risk. If this is the case, consider specialist referral to assess eligibility for a risk reducing agent. 2. If overall lifetime risk for the development of breast cancer is 20% or higher, the patient may qualify for future screening with alternating mammogram and breast MRI. [facility], Workstation: 3, 08/13/2024 11:49 AM. Electronically signed and approved by: Tenzin Dasilva M.D. Radiologis
--- NOTE | 2024-08-13 12:34 | USB ---
Reason for Exam: Additional evaluation requested from prior study. Patient History: Menarche at age 11. First Full-Term at age 19. Left ovary removed at age 26. Hysterectomy at age 26. Postmenopausal. 2019, Benign Excisional Biopsy on the right side. Paternal aunt had breast cancer, age 40. Maternal aunt had breast cancer, age 40. Risk Values: Brittny 5 year model risk: 0.5%. NCI Lifetime model risk: 10.0%. Technique: Method: Targeted. Prior Study Comparison: 09/16/2019 Bilateral Diagnostic Mammogram, [facility]. 10/15/2020 Bilateral Diagnostic Mammogram, [facility]. 10/23/2022 Bilateral MG 3D diag mammo w/cad [place], [facility]. Findings: The whole breast of the left breast, the upper section of the breast of the right breast, the axilla of both breasts and the retroareolar of both breasts were scanned. A complete US of all four quadrants of the left breast and retro-areolar region were reviewed. In addition ultrasound of the upper half of the right breast was performed including the retroareolar and axillary regions. No solid masses are seen within either breast. Noted are waxing and waning cysts bilaterally the largest on the right is seen at the 12:00 position 2 cm from the nipple measuring 1.8 x 0.8 cm. Within the left breast the largest cyst is at 1:00 measuring 2.2 cm maximal dimension. Overall Assessment: Benign, BI-RAD 2 Management: Screening Mammogram of both breasts in 1 year. A clinical breast exam by your physician is recommended on an annual basis and results should be correlated with mammographic findings. This exam should not preclude additional follow-up of suspicious palpable abnormalities. Results were given to the patient verbally at the time of exam. [facility], , 08/13/2024 12:31 PM. Electronically signed and approved by: Tenzin Dasilva M.D. Radiologis
== END | disposition home or self-care (01) ==
LOC: RADMAMWWP 10:59
PROVIDERS: ATTEND Family Medicine
DX: R92.333 Mammographic heterogeneous density, bilateral breasts (principal); N60.02 Solitary cyst of left breast; N60.01 Solitary cyst of right breast; Z78.0 Asymptomatic menopausal state; Z80.3 Family history of malignant neoplasm of breast
CPT/HCPCS: 77066; 76642; G0279; 77062

== ENCOUNTER 2024-09-04 12:20 | Emergency (ER) | payer OTHER ==
[2024-09-04 12:40] VITALS: RESP 16; TEMP 98.1
--- NOTE | 2024-09-04 12:46 | ED ---
Allergic Reaction HPI - General Chief complaint: Allergic Reaction Stated complaint: Medication RXN Time Seen by Provider: 09/04/24 12:41 Source: patient, RN notes reviewed Mode of arrival: ambulatory Limitations: no limitations - History of Present Illness Initial Comments: This is a 39-year-old female who presents to the emergency department for concer ns of an allergic reaction. States that she was prescribed new vitamins yesterday and shortly after taking them started to develop an itchy rash around both of her ankles. The rash has not occurred anywhere else. The next day she felt like her tongue was swollen and she could not talk. However, this resolved on its own shortly afterwards. She has not yet taken anything for her symptoms. States that her PCP could not see her today and she was advised to come here. - Related Data Home Medications Medication Instructions Recorded Confirmed Albuterol Nebulized [Ventolin 2.5 mg INHALATION RT-QID PRN 10/07/19 05/07/23 Nebulized] Beclomethasone Dip 80 Mcg/Puff 1 puff INHALATION BID 10/07/19 05/07/23 [Qvar 80 mcg] Citalopram Hydrobromide 40 mg PO QAM 10/07/19 05/07/23 [Citalopram HBr] lamoTRIgine 100 mg PO BID 10/07/19 05/07/23 Albuterol Sulfate [Proair Hfa] 1 - 2 puff INHALATION RT-Q6H PRN 04/05/20 05/07/23 Baclofen [Lioresal] 10 mg PO QID PRN 04/05/20 05/07/23 Budesonide/Formoterol Fumarate 2 puff INHALATION RT-BID PRN 04/05/20 05/07/23 [Symbicort 160-4.5 Mcg Inhaler] Butalb/APAP/Caff 50-325-40Mg 1 tab PO Q6H PRN 04/05/20 05/07/23 [Fioricet 50-325-40] Docusate Sodium [Dok] 100 mg PO BID 04/05/20 05/07/23 Ergocalciferol [Vitamin D2] 50,000 unit PO SA 04/05/20 05/07/23 Fluticasone Propionate 110 Mcg 1 puff INHALATION RT-BID PRN 04/05/20 05/07/23 [Flovent 110 Mcg Inhaler (Mhu)] Meloxicam [Mobic] 7.5 mg PO BID 04/05/20 05/07/23 Na Phos,M-B/Na Phos,Di-Ba [Fleet 133 ml RECTAL DAILY PRN 04/05/20 05/07/23 Adult] Naloxone HCl [Narcan] 4 mg NASAL ONCE PRN 04/05/20 05/07/23 Omeprazole 20 mg PO DAILY 04/05/20 05/07/23 busPIRone HCL 7.5 mg PO TID PRN 04/05/20 05/07/23 polyethylene glycoL 3350 [Miralax] 17 gm PO DAILY 04/05/20 05/07/23 Allergies Allergy/AdvReac Type Severity Reaction Status Date / Time amoxicillin Allergy Anaphylaxis Verified 05/15/23 09:15 ibuprofen Allergy Anaphylaxis Verified 05/15/23 09:15 Penicillins Allergy Unknown Verified 05/15/23 09:15 Childhood Review of Systems ROS Statement: Those systems with pertinent positive or pertinent negative responses have been documented in the HPI. ROS Other: All systems not noted in ROS Statement are negative. Past Medical History Past Medical History: Asthma, GERD/Reflux, Seizure Disorder Additional Past Medical History / Comment(s): migraines, asthma, last seizure 08/2019. BLEEDING HEMORRHOIDS History of Any Multi-Drug Resistant Organisms: None Reported Past Surgical History: Hysterectomy Additional Past Surgical History / Comment(s): EYE SURGERY as child Past Anesthesia/Blood Transfusion Reactions: Postoperative Nausea & Vomiting (PONV) Additional Past Anesthesia/Blood Transfusion Reaction / Comment(s): no blood transfusion Past Psychological History: Bipolar, Depression Smoking Status: Former smoker General Exam Limitations: no limitations General appearance: alert, in no apparent distress Head exam: Present: atraumatic, normocephalic, normal inspection ENT exam: Present: normal exam, mucous membranes moist Respiratory exam: Present: normal lung sounds bilaterally. Absent: respiratory distress, wheezes, rales, rhonchi, stridor Cardiovascular Exam: Present: regular rate, normal rhythm GI/Abdominal exam: Present: soft, normal bowel sounds. Absent: distended, tenderness, guarding, rebound, rigid Neurological exam: Present: alert, oriented X3, CN II-XII intact Psychiatric exam: Present: normal affect, normal mood Skin exam: Present: other (Small maculopapular erythematous bumps to the bilateral ankles) Course Vital Signs 09/04/24 09/04/24 12:37 14:25 Temperature 98.1 F Pulse Rate 63 81 Respiratory 16 16 Rate Blood Pressure 133/89 102/66 O2 Sat by Pulse 98 100 Oximetry Medical Decision Making - Medical Decision Making This is a 39-year-old female who presents to the emergency department with concerns of an allergic reaction. Was pt. sent in by a medical professional or institution? @ -No Did you speak to anyone other than the patient for history? @ -No Did you review nursing and triage notes? @ -Yes, and I agree, it is accurate with regards to the patient's symptoms. Were old charts reviewed? @ -No Differential Diagnosis? @ -Roseola, measles, Lyme disease, erythema multiforme, cellulitis, toxic shock syndrome, Joel Ramos syndrome, Kawasaki disease, mervat mountain spotted fever, contact dermatitis, allergic dermatitis, measles, mumps, rubella, varicella, meningococcal disease, drug reaction, coxsackievirus, This is not meant to be an all-inclusive list. EKG interpreted by me (3pts min.)? @ -Not obtained X-rays interpreted by me (1pt min.)? @ -Not obtained CT interpreted by me (1pt min.)? @ -Not obtained U/S interpreted by me (1pt. min.)? @ -Not obtained What testing was considered but not performed? (CT, X-rays, U/S, labs)? Why? @ -None What meds were considered but not given? Why? @ -None Did you discuss the management of the patient with other professionals? @ -No Did you reconcile home meds? @ -No Was smoking cessation discussed for >3mins.? @ -No Was critical care preformed (if so, how long)? @ -No Were there social determinants of health that impacted care today? How? (Homelessness, low income, unemployed, alcoholism, drug addiction, transportation, low edu. Level, literacy, decrease access to med. care, shelter, rehab)? @ -No Was there de-escalation of care discussed even if they declined? (Discuss DNR or withdrawal of care, Hospice)? @ -No What co-morbidities impacted this encounter? (DM, HTN, Smoking, COPD, CAD, Cancer, CVA, Hep., AIDS, mental health diagnosis, sleep apnea, morbid obesity)? @ -None Was patient admitted / discharged? @ -Discharged. On exam patient had maculopapular erythematous lesions around her ankles that she was concerned may be a reaction to the medication. These were more similar to something like flea bites than urticaria. However, advised that we will treat her very similarly. Solu-Medrol, Benadryl, and famotidine administered and triamcinolone cream was applied to the lesions. She did report improvement in symptoms afterwards. She was sent home with the triamcinolone cream to continue using as needed for itching. Also advised she continue with [id number] Benadryl. Patient discharged home in stable condition. Case discussed with ED attending Dr. Johnston. Return precautions reviewed in depth, the patient is instructed to return to the emergency department with any new, worsening, or concerning symptoms. Patient verbalized understanding. Undiagnosed new problem with uncertain prognosis? @ -None Drug Therapy requiring intensive monitoring for toxicity (Heparin, Nitro, Insulin, Cardizem)? @ -None Were any procedures done? @ -None Diagnosis/symptom? @ -Rash, allergic reaction Acute, or Chronic, or Acute on Chronic? @ -Acute Uncomplicated (without systemic symptoms) or Complicated (systemic symptoms)? @ -Uncomplicated Side effects of treatment? @ -None Exacerbation, Progression, or Severe Exacerbation] @ -Not applicable Poses a threat to life or bodily function? @ -No Disposition Clinical Impression: Allergic reaction, Rash Disposition: HOME SELF-CARE Instructions (If sedation given, give patient instructions): Acute Rash (ED), General Allergic Reaction (ED) Additional Instructions: Return to the emergency department with any new, worsening, or concerning symptoms. Continue to apply the triamcinolone cream provided 3-4 times daily to help with the itching. You can also take [id number] Benadryl. Follow up with your primary care provider in 1-2 days. Is patient prescribed a controlled substance at d/c from ED?: No Referrals: Dieter Engle MD [Primary Care Provider] - 1-2 days Time of Disposition: 14:20
[2024-09-04] MEDS: methylPREDNISolone SOD SUCCI 125 MG/2 ML VIAL IM ONE (13:28)
[2024-09-04] MEDS: TRIAMCINOLONE 0.1% CREAM 80 GM TUBE TOPICAL STA (13:28)
[2024-09-04] MEDS: FAMOTIDINE 20 MG TAB PO STA (13:29)
[2024-09-04] MEDS: diphenhydrAMINE 50 MG/ML 1 ML VIAL IM STA (13:29)
[2024-09-04 14:27] VITALS: BP 102/66; PULSE 81
== END 2024-09-04 14:27 | disposition home or self-care (01) ==
LOC: EC 12:20
DX: R21 Rash and other nonspecific skin eruption (principal); T45.2X5A Adverse effect of vitamins, initial encounter; Z87.891 Personal history of nicotine dependence; Z88.0 Allergy status to penicillin; Z88.8 Allergy status to other drugs, medicaments and biological substances
CPT/HCPCS: 99283; 96372 ×2; J1200; J2919

== ENCOUNTER 2024-10-27 13:07 | Emergency (ER) | payer OTHER ==
[2024-10-27 13:27] VITALS: TEMP 98.4
--- NOTE | 2024-10-27 13:27 | ED ---
GI Bleed HPI - General Source: patient, RN notes reviewed Mode of arrival: ambulatory Limitations: no limitations <Bull Lopez - Last Filed: 10/27/24 13:26> - General Source: patient, RN notes reviewed, old records reviewed Mode of arrival: ambulatory Limitations: no limitations - History of Present Illness MD complaint: blood on toilet paper, blood streaked stool -: hour(s) Radiation: none Severity scale (1-10): 4 Quality: painless Consistency: constant Improves with: none Worsens with: none Context: history of GI bleed, hemorrhoids Associated Symptoms: denies other symptoms <Rj Ragsdale - Last Filed: 10/27/24 16:53> - General Stated complaint: Abd Pain/Blood in stool/Hasn't used bathroom 3wks Time Seen by Provider: 10/27/24 13:17 - History of Present Illness Initial comments: Quick note 39-year-old female presents emergency department complaint of rectal bleeding, rectal pain. Patient states she has had some issues in the past was seen by Dr. Caban who felt that it was not related to hemorrhoids at that time. She states she woke up and there was a bunch of blood in her underwear this morning. Patient states she has increasing rectal pain unable to sit down. (Bull Lopez) This is a 39-year-old female history of bleeding history of GI bleeding history of hemorrhoids concern for hemorrhoidal bleeding, patient has had scopes with Dr. Alcantara of surgery. Patient concern for bleeding here in the ER (Rj Ragsdale) - Related Data Home Medications Medication Instructions Recorded Confirmed Albuterol Nebulized [Ventolin 2.5 mg INHALATION RT-QID PRN 10/07/19 05/07/23 Nebulized] Beclomethasone Dip 80 Mcg/Puff 1 puff INHALATION BID 10/07/19 05/07/23 [Qvar 80 mcg] Citalopram Hydrobromide 40 mg PO QAM 10/07/19 05/07/23 [Citalopram HBr] lamoTRIgine 100 mg PO BID 10/07/19 05/07/23 Albuterol Sulfate [Proair Hfa] 1 - 2 puff INHALATION RT-Q6H PRN 04/05/20 05/07/23 Baclofen [Lioresal] 10 mg PO QID PRN 04/05/20 05/07/23 Budesonide/Formoterol Fumarate 2 puff INHALATION RT-BID PRN 04/05/20 05/07/23 [Symbicort 160-4.5 Mcg Inhaler] Butalb/APAP/Caff 50-325-40Mg 1 tab PO Q6H PRN 04/05/20 05/07/23 [Fioricet 50-325-40] Docusate Sodium [Dok] 100 mg PO BID 04/05/20 05/07/23 Ergocalciferol [Vitamin D2] 50,000 unit PO SA 04/05/20 05/07/23 Fluticasone Propionate 110 Mcg 1 puff INHALATION RT-BID PRN 04/05/20 05/07/23 [Flovent 110 Mcg Inhaler (Mhu)] Meloxicam [Mobic] 7.5 mg PO BID 04/05/20 05/07/23 Na Phos,M-B/Na Phos,Di-Ba [Fleet 133 ml RECTAL DAILY PRN 04/05/20 05/07/23 Adult] Naloxone HCl [Narcan] 4 mg NASAL ONCE PRN 04/05/20 05/07/23 Omeprazole 20 mg PO DAILY 04/05/20 05/07/23 busPIRone HCL 7.5 mg PO TID PRN 04/05/20 05/07/23 polyethylene glycoL 3350 [Miralax] 17 gm PO DAILY 04/05/20 05/07/23 Allergies Allergy/AdvReac Type Severity Reaction Status Date / Time amoxicillin Allergy Anaphylaxis Verified 10/27/24 13:27 ibuprofen Allergy Anaphylaxis Verified 10/27/24 13:27 Penicillins Allergy Unknown Verified 10/27/24 13:27 Childhood Review of Systems ROS Other: All systems not noted in ROS Statement are negative. <Bull Lopez - Last Filed: 10/27/24 13:26> ROS Other: All systems not noted in ROS Statement are negative. <Rj Ragsdale - Last Filed: 10/27/24 16:53> ROS Statement: Those systems with pertinent positive or pertinent negative responses have been documented in the HPI. Past Medical History Past Medical History: Asthma, GERD/Reflux, Seizure Disorder Additional Past Medical History / Comment(s): migraines, asthma, last seizure 08/2019. BLEEDING HEMORRHOIDS History of Any Multi-Drug Resistant Organisms: None Reported Past Surgical History: Hysterectomy Additional Past Surgical History / Comment(s): EYE SURGERY as child Past Anesthesia/Blood Transfusion Reactions: Postoperative Nausea & Vomiting (PONV) Additional Past Anesthesia/Blood Transfusion Reaction / Comment(s): no blood transfusion Past Psychological History: Bipolar, Depression Smoking Status: Former smoker <Bull Lopez - Last Filed: 10/27/24 13:26> General Exam <Bull Lopez - Last Filed: 10/27/24 13:26> General appearance: alert, in no apparent distress Head exam: Present: atraumatic, normocephalic, normal inspection Eye exam: Present: normal appearance, PERRL, EOMI. Absent: scleral icterus, conjunctival injection, periorbital swelling ENT exam: Present: normal exam, mucous membranes moist Neck exam: Present: normal inspection. Absent: tenderness, meningismus, lymphadenopathy Respiratory exam: Present: normal lung sounds bilaterally. Absent: respiratory distress, wheezes, rales, rhonchi, stridor Cardiovascular Exam: Present: regular rate, normal rhythm, normal heart sounds. Absent: systolic murmur, diastolic murmur, rubs, gallop, clicks GI/Abdominal exam: Present: soft, normal bowel sounds. Absent: distended, tenderness, guarding, rebound, rigid Extremities exam: Present: normal inspection, full ROM, normal capillary refill. Absent: tenderness, pedal edema, joint swelling, calf tenderness Back exam: Present: normal inspection Neurological exam: Present: alert, oriented X3, CN II-XII intact Psychiatric exam: Present: normal affect, normal mood Skin exam: Present: warm, dry, intact, normal color. Absent: rash <Rj Ragsdale - Last Filed: 10/27/24 16:53> - General Exam Comments Initial Comments: Visual Physical Exam Vital signs reviewed General: Well-appearing, nontoxic, no acute distress. Head: Normocephalic, atraumatic Eyes: PERRLA, EOMI ENT: Airway patent Chest: Nonlabored breathing Skin: No visual rash, normal skin tone Neuro: Alert and oriented 3 Musculoskeletal: No gross abnormalities (Bull Lopez) Course <Rj Ragsdale - Last Filed: 10/27/24 16:53> Vital Signs 10/27/24 13:25 Temperature 98.4 F Pulse Rate 86 Respiratory 16 Rate Blood Pressure 119/84 O2 Sat by Pulse 99 Oximetry - Reevaluation(s) Reevaluation #1: 10/27/24 16:51 Records reviewed (Rj Ragsdale) Reevaluation #2: 10/27/24 16:51 Patient has no active bleeding here in the ER (Rj Ragsdale) Reevaluation #3: 10/27/24 16:52 Patient informed of results and questions answered (Rj Ragsdale) Reevaluation #4: Was pt. sent in by a medical professional or institution (, [facility], COLLECTION SYSTEMS CONSULTANT, urgent care, hospital, or [facility]...) When possible be specific @ -no Did you speak to anyone other than the patient for history (EMS, parent, family, police, friend...)? What history was obtained from this source @ -no Did you review nursing and triage notes (agree or disagree)? Why? @ -agree Are old charts reviewed (outside hosp., previous admission, EMS record, old EKG, old radiological studies, urgent care reports/EKG's, [facility] records)? Report findings @ -yes Differential Diagnosis (chest pain, altered mental status, abdominal pain women, abdominal pain men, vaginal bleeding, weakness, fever, dyspnea, syncope, headache, dizziness, GI bleed, back pain, seizure, CVA, palpatations, mental h ealth, musculoskeletal)? @ -prior EKG interpreted by me (3pts min.). @ -yes X-rays interpreted by me (1pt min.). @ -yes negative for acute disease CT interpreted by me (1pt min.). @ -no U/S interpreted by me (1pt. min.). @ -no What testing was considered but not performed or refused? (CT, X-rays, U/S, labs)? Why? @ -none What meds were considered but not given or refused? Why? @ -none Did you discuss the management of the patient with other professionals (professionals i.e. [facility] [place], COLLECTION SYSTEMS CONSULTANT, lab, RT, psych nurse, director social welfare, sales operations coordinator, teacher, training systems officer, director of casework department)? Give summary @ -no Was smoking cessation discussed for >3mins.? @ -no Was critical care preformed (if so, how long)? @ -no Were there social determinants of health that impacted care today? How? (Homelessness, low income, unemployed, alcoholism, drug addiction, transportation, low edu. Level, literacy, decrease access to med. care, [facility]ci, rehab)? @ -none Was there de-escalation of care discussed even if they declined (Discuss DNR or withdrawal of care, Hospice)? DNR status @ -no What co-morbidities impacted this encounter? (DM, HTN, Smoking, COPD, CAD, Cancer, CVA, ARF, Chemo, Hep., AIDS, mental health diagnosis, sleep apnea, morbid obesity)? @ -none Was patient admitted / discharged? Hospital course, mention meds given and route, prescriptions, significant lab abnormalities, going to OR and other p ertinent info. @ - Undiagnosed new problem with uncertain prognosis? @ -no Drug Therapy requiring intensive monitoring for toxicity (Heparin, Nitro, Insulin, Cardizem)? @ -no Were any procedures done? @ -no Diagnosis/symptom? @ - Acute, or Chronic, or Acute on Chronic? @ -Acute Uncomplicated (without systemic symptoms) or Complicated (systemic symptoms)? @ -Complicated Side effects of treatment? @ -no Exacerbation, Progression, or Severe Exacerbation? @ -exacerbation Poses a threat to life or bodily function? How? (Chest pain, USA, CA, pneumonia, PE, COPD, DKA, ARF, appy, cholecystitis, CVA, Diverticulitis, Homicidal, Suicidal, threat to staff... and all critical care pts) @ -yes (Rj Ragsdale) Reevaluation #5: Differential GI Bleed: Esophageal varices, aortoenteric fistula, Camila-Pascal, gastritis, peptic ulcer disease, diverticulosis, inflammatory bowel disease, hemorrhoids, fissure, colitis, malignancy, Meckel's diverticulum, this is not meant to be an all- inclusive list. (Rj Ragsdale) Medical Decision Making <Bull Lopez - Last Filed: 10/27/24 13:26> - Lab Data Result diagrams: 10/27/24 13:54 10/27/24 13:54 <Rj Ragsdale - Last Filed: 10/27/24 16:53> - Medical Decision Making I completed the quick note portion of this chart signed Bull Lopez PA-C (Bull Lopez) 39 female to ER for evaluation of likely recurrent hemorrhoidal bleeding. Patient will follow-up outpatient with Dr. Alcantara, normal hemoglobin here (Rj Ragsdale) - Lab Data Lab Results 10/27/24 10/27/24 Range/Units 13:54 13:54 WBC 7.62 (4.50-10.00) 10*3/uL RBC 4.73 (4.10-5.20) 10*6/uL Hgb 15.1 H (12.0-15.0) g/dL Hct 45.5 (37.2-46.3) % MCV 96.2 (80.0-97.0) fL MCH 31.9 (27.0-32.0) pg MCHC 33.2 (32.0-37.0) g/dL Plt Count 365 (140-440) 10*3/uL MPV 9.3 L (9.5-12.2) fL Immature Gran % (Auto) 0.1 % Neutrophils % 65.7 % Lymphocytes % 24.5 % Monocytes % 7.1 % Eosinophils % 2.1 % Basophils % 0.5 % Immature Gran # 0.01 (0.00-0.04) 10*3/uL Neutrophils # 5.00 (1.80-7.70) 10*3/uL Lymphocytes # 1.87 (0.90-5.00) 10*3/uL Monocytes # 0.54 (0.20-1.00) 10*3/uL Eosinophils # 0.16 (0.04-0.35) 10*3/uL Basophils # 0.04 (0.00-0.10) 10*3/uL Sodium 141 (137-145) mmol/L Potassium 4.9 (3.5-5.1) mmol/L Chloride 104 (98-107) mmol/L Carbon Dioxide 28 (22-30) mmol/L Anion Gap 9 mmol/L BUN 17 (7-17) mg/dL Creatinine 0.43 L (0.52-1.04) mg/dL Est GFR (CKD-EPI)AfAm >90 (>60 ml/min/1.73 sqM) Est GFR (CKD-EPI)NonAf >90 (>60 ml/min/1.73 sqM) Glucose 84 (74-99) mg/dL Calcium 9.8 (8.4-10.2) mg/dL Total Bilirubin 0.4 (0.2-1.3) mg/dL AST 112 H (14-36) U/L ALT 147 H (4-34) U/L Alkaline Phosphatase 112 (38-126) U/L Total Protein 6.9 (6.3-8.2) g/dL Albumin 4.2 (3.5-5.0) g/dL Lipase 69 (23-300) U/L Disposition <Bull Lopez - Last Filed: 10/27/24 13:26> Is patient prescribed a controlled substance at d/c from ED?: No Time of Disposition: 16:45 <Rj Ragsdale - Last Filed: 10/27/24 16:53> Clinical Impression: Rectal bleeding, Bleeding hemorrhoid Disposition: HOME SELF-CARE Condition: Good Instructions (If sedation given, give patient instructions): Gastrointestinal Bleeding (ED) Referrals: Dieter Engle MD [Primary Care Provider] - 1-2 days Geoff Do MD [Medical Doctor] - 1-2 days
[2024-10-27 14:31] LABS: Basophils # (A) 0.04 10*3/uL (0.00-0.10); Basophils % (A) 0.5 %; Eosinophils # (A) 0.16 10*3/uL (0.04-0.35); Eosinophils % (A) 2.1 %; HCT 45.5 % (37.2-46.3); HGB 15.1 g/dL (12.0-15.0); Lymphocytes # (A) 1.87 10*3/uL (0.90-5.00); Lymphocytes % (A) 24.5 %; MCH 31.9 pg (27.0-32.0); MCHC 33.2 g/dL (32.0-37.0); MCV 96.2 fL (80.0-97.0); Mean Platelet Volume 9.3 fL (9.5-12.2); Monocytes # (A) 0.54 10*3/uL (0.20-1.00); Monocytes % (A) 7.1 %; Neutrophils % (A) 65.7 %; Platelet Count 365 10*3/uL (140-440); RBC 4.73 10*6/uL (4.10-5.20); RDW 12.3 % (11.5-14.5); WBC 7.62 10*3/uL (4.50-10.00)
[2024-10-27 14:50] LABS: ALT 147 U/L (4-34); AST 112 U/L (14-36); African American GFR (CKD) >90 (>60 ml/min/1.73 sqM); Albumin 4.2 g/dL (3.5-5.0); Alkaline Phosphatase 112 U/L (38-126); Anion Gap 9 mmol/L; Blood Urea Nitrogen 17 mg/dL (7-17); Calcium 9.8 mg/dL (8.4-10.2); Carbon Dioxide 28 mmol/L (22-30); Chloride 104 mmol/L (98-107); Glucose 84 mg/dL (74-99); Lipase 69 U/L (23-300); Non-African American GFR(CKD) >90 (>60 ml/min/1.73 sqM); Potassium 4.9 mmol/L (3.5-5.1); Sodium 141 mmol/L (137-145); Total Bilirubin 0.4 mg/dL (0.2-1.3); Total Protein 6.9 g/dL (6.3-8.2)
[2024-10-27 17:07] VITALS: BP 108/77; PULSE 65; RESP 20
== END 2024-10-27 17:08 | disposition home or self-care (01) ==
LOC: EC 13:07
DX: K62.5 Hemorrhage of anus and rectum (principal); K64.9 Unspecified hemorrhoids; Z87.891 Personal history of nicotine dependence; Z88.0 Allergy status to penicillin; Z88.6 Allergy status to analgesic agent
CPT/HCPCS: 36415; 80053; 83690; 85025; 99284